=== PATIENT | female | born 1955 | race Caucasian/White ===

== ENCOUNTER 2021-04-16 15:16 | Inpatient (IN) | payer MEDICARE ==
[~2021-04-16] VITALS: Ht 157.5 cm; Wt 53.8 kg
--- NOTE | 2021-04-16 15:22 | PHYS DOC ---
Past Medical History Past Medical History History of lupus DVT cervical cancer, trigeminal arthralgia and asthma. Past Surgical History She reports history of a major surgery where they rerouted her bile duct. Alcohol Use: Occasionally Drug Use: None General Adult EDM: Chief Complaint: Left hip pain HPI: HPI: 65-year-old female who presents emergency department today with left hip pain. She was sitting and she went to stand up and her left leg went numb and so she fell and injured her hip. She denies hitting her head or loss of consciousness. The pain is sharp shooting severe in the pelvis nonradiating without alleviating factors. The sensation in her leg has improved since the injury and transports. The numbness predated her injury. It caused her injury Review of systems negative for chest pain shortness of breath back pain or abdominal pain. All other review of systems negative. Heart Score: C/O Chest Pain: No Risk Factors: Risk Factors: DM, Current or recent (<one month) smoker, HTN, HLP, family history of CAD, obesity. Risk Scores: Score 0 - 3: 2.5% MACE over next 6 weeks - Discharge Home Score 4 - 6: 20.3% MACE over next 6 weeks - Admit for Clinical Observation Score 7 - 10: 72.7% MACE over next 6 weeks - Early Invasive Strategies Physical Exam: PE: General Appearance alert, cooperative, no distress, responsive Head Normocephalic, without obvious abnormality, atraumatic no abrasions lacerations or ecchymosis to the head and neck. Eyes conjunctivae/corneas clear. PERRL, EOM's intact. Nose Nares normal. Septum midline. Mucosa normal. No drainage or sinus tenderness. Throat no blood or lacerations, normal alignment Neck supple, symmetrical, trachea midline, cervical collar in place Back/Spine symmetric, normal curvature. ROM normal, no abrasions, no tenderness to palpation, no step-offs Lungs clear to auscultation bilaterally Chest Wall normal ribcage without tenderness to palpation, crepitus or emphysema Heart REG rate and regular rhythm, S1, S2 normal, no murmur, click, rub or gallop Abdomen soft, non-tender. Bowel sounds normal. No masses, no organomegaly Pelvis is stable Extremities patient's lower extremities are atraumatic nontender to palpation with palpable pulse and 2-second cap refill. Normal motor and sensory function of the feet bilaterally. Upper extremities are nontender with normal range of motion of the joints. Neurovascular intact with palpable pulse and 2-second cap refill Pulses 2+ and symmetric Skin Skin color, texture, turgor normal. No rashes or lesions Neurologic Grossly normal Eye opening: (4) spontaneous Best motor response: (6) obeys verbal command Best verbal response: (5) oriented and converses Total Tonia (E + M + V) = 15 EKG: EKG: [] Radiology/Procedures: Radiology/Procedures: [] Course & Med Decision Making: Course & Med Decision Making Pertinent Labs and Imaging studies reviewed. (See chart for details) [] 65-year-old female who presented after a fall with pubic rami fractures and a sacral fracture. IV established. Blood work ordered. Patient was afebrile with a normal heart rate on arrival. Blood pressure initially 146/76. Labs obtained which showed a hemoglobin of 11.7. White blood cell 8.1. Chemistry panel unremarkable. Head and neck CT negative. X-ray shows pubic rami fracture and a left sacral fracture. CT of the pelvis shows a nondisplaced left sacral wing fracture with superior and inferior pubic rami fractures. Neurovascular intact. I spoke with Dr. Oscar. Will admit the patient to Dr. Allen. I also spoke with Dr. Schreiber. We will consult trauma surgery. Basic bridge orders placed. Cortney Disclaimer: Cortney Disclaimer: This electronic medical record was generated, in whole or in part, using a voice recognition dictation system. Departure Departure Impression: Primary Impression: Pubic ramus fracture Additional Impression: Sacral fracture, closed Disposition: ADMITTED INPATIENT Admitting Physician: [facility] Condition: STABLE LAVELL CHAVARRIA MD Apr 16, 2021 15:22
--- NOTE | 2021-04-16 15:54 | RAD ---
Left hip 2 views with one view pelvis. HISTORY: Left hip pain Single view was taken of the pelvis. There are left superior and inferior pubic rami fractures. There is irregularity at the sacrum suggesting a nondisplaced sacral fracture as well. A right hip fractur e is not identified. AP and lateral views the left hip again demonstrate the pubic rami fractures. There is no acute proxi mal femur fracture. IMPRESSION: 1. Right superior and inferior pubic rami fracture. 2. Fracture left sacrum. Electronically signed by: Leobardo Ochoa MD (04/16/2021 3:51 PM) [facility]
[2021-04-16] MEDS ORDERED: IV NORMAL SALINE 1000ML BAG 1,000 ML IV ONE (16:15)
[2021-04-16] MEDS ORDERED: ONDANSETRON PF 4 MG/2 ML VIAL. IV PRN (16:15)
[2021-04-16] MEDS: HYDROmorphone 2 MG/ML VIAL IV PRN ×3 (16:18→21:19)
--- NOTE | 2021-04-16 18:06 | RAD ---
Exam: CT head and cervical spine without contrast INDICATION: Head injury TECHNIQUE: Sequential axial images through the head and cervical spine were obtained without the admi nistration of IV contrast. Exposure: One or more of the following in the visualized dose reduction techniques were utilized for this examination: 1. Automated exposure control 2. Adjustment of the MA and/or KV according to patient size 3. Use of iterative of reconstructive technique Comparisons: None FINDINGS: Head: No focal parenchymal lesion or hemorrhage is identified. There is no midline shift or sulcal effaceme nt. No acute vascular territory infarction is identified. Henderson-white distinction is preserved. The ventricular system is within normal limits without compression hydrocephalus. The basal cisterns are well maintained. The visualized portions of the paranasal sinuses and mastoid air cells are well-pneumatized. No acute fractures. Cervical spine: Reversal of normal cervical lordosis which may be positional. Vertebral body heights are well-maintai guerda. Fracture to the cervical spine is not identified. Multilevel spondylotic change in cervical spine with degenerative disc disease greatest at C4-C5, C5- C6 and C6-C7. Mild bilateral facet arthropathy is also noted in the cervical spine. Visualized paraspinal soft tissues are unremarkable. IMPRESSION: 1. No acute intracranial abnormality. 2. Negative CT C-spine for acute traumatic injury. Electronically signed by: Dee Pate MD (04/16/2021 6:04 PM) [facility]
[2021-04-16 18:16] LABS: BASO % 0 % (0-3); EOS # 0.2 x10^3/uL (0.0-0.7); EOS % 3 % (0-3); HEMATOCRIT 35.2 % (36.0-47.0); HEMOGLOBIN 11.7 g/dL (12.0-15.5); LYMPH # 0.9 x10^3/uL (1.0-4.8); LYMPH % 11 % (24-48); MEAN CORPUSCULAR HEMOGLOBIN 32 pg (25-35); MEAN CORPUSCULAR HGB CONC 33 g/dL (31-37); MEAN CORPUSCULAR VOLUME 95 fL (79-100); MONO # 0.5 x10^3/uL (0.0-1.1); MONO % 6 % (0-9); NEUT # 6.4 x10^3/uL (1.8-7.7); NEUT % 80 % (31-73); PLATELET COUNT 268 x10^3/uL (140-400); RED BLOOD COUNT 3.69 x10^6/uL (3.50-5.40); RED CELL DISTRIBUTION WIDTH 12.8 % (11.5-14.5); WHITE BLOOD COUNT 8.1 x10^3/uL (4.0-11.0)
--- NOTE | 2021-04-16 18:23 | RAD ---
CT PELVIS WO History: Pelvis fractures. Comparison: Hip radiographs 04/16/2021 Technique: Noncontrast CT through the pelvis. Findings: There is a nondisplaced transverse fracture through the left sacral wing (axial series 3 image 16). A dditionally, there are minimally displaced left superior and inferior pubic rami fractures. No proximal femur fracture. Mild degenerative changes of bilateral hips. Atherosclerotic vascular william cifications in the aorta and iliac arteries. The bladder is well distended. No pelvic masses are iden tified. Impression: 1. Nondisplaced transverse fracture through the left sacral wing. 2. Minimally displaced left superior and inferior pubic rami fractures. ------ Exposure: One or more of the following individualized dose reduction techniques were utilized for thi s examination: 1. Automated exposure control 2. Adjustment of the mA and/or kV according to patient size 3. Use of iterative reconstruction technique. Electronically signed by: Cam Callaway MD (04/16/2021 6:21 PM) [facility]
[2021-04-16 18:34] LABS: CALCIUM 8.1 mg/dL (8.5-10.1); CREATININE 0.6 mg/dL (0.6-1.0); POTASSIUM 3.9 mmol/L (3.5-5.1)
[2021-04-16 18:39] LABS: ALBUMIN 2.6 g/dL (3.4-5.0); TOTAL BILIRUBIN 0.2 mg/dL (0.2-1.0); TOTAL PROTEIN 5.2 g/dL (6.4-8.2)
--- NOTE | 2021-04-16 19:39 | PDOC1 ---
History and Physical Date of Admission Date of Admission DATE: 04/16/21 TIME: 19:21 Identification/Chief Complaint Chief Complaint Fall Source Source: Caregiver, Chart review, Patient History of Present Illness History of Present Illness Patient is a 65-year-old female with past medical history of lupus, trigeminal neuralgia, hypothyroidism, cervical cancer, osteoporosis, history of blood clots, anxiety/depression, who presents to the ED with complaints of left hip pain after a fall. States she was sitting and when she went to stand she collapsed on the front porch. States she landed on her bottom and did hit her head, but denies LOC. She reports pain 10/10 at that time, with some associated numbness. States that this is the third time this week that she has had this type of numbness and weakness in her lower extremities, which is new and concerning for her. She denies any associated chest pain, nausea, or shortness of breath. Labs on admission showed hemoglobin 11.7, hematocrit 35.2, BUN 13, creatinine 0.6, albumin 2.6, with BUN/creatinine ratio 22. CT o abdomen/pelvis shows a nondisplaced left sacral wing fracture with superior and inferior pubic rami fractures. Will admit patient for further medical management. Past Medical History Past Medical History Lupus, trigeminal neuralgia, blood clots, cervical CVA, hypothyroidism, an xiety/depression, osteoporosis Past Surgical History Past Surgical History Cholecystectomy, partial hysterectomy Family History Family History Lupus Social History Smoke: No ALCOHOL: rare Drugs: None Current Problem List Problem List Problems Medical Problems: (1) Pubic ramus fracture Status: Acute (2) Sacral fracture, closed Status: Acute Current Medications Current Medications Current Medications Hydromorphone HCl (Dilaudid) 0.5 mg PRN Q30MIN PRN IV SEVERE PAIN 7-10 Last administered on 04/16/21at 18:15; Start 04/16/21 at 16:00 Sodium Chloride 1,000 ml @ 1,000 mls/hr 1X ONCE IV Last administered on 04/16/21at 16:19; Start 04/16/21 at 16:15; Stop 04/16/21 at 17:14; Status DC Ondansetron HCl (Zofran) 4 mg 1X PRN IV NAUSEAS Last administered on 04/16/21at 16:17; Start 04/16/21 at 16:15; Stop 04/16/21 at 16:19; Status DC Morphine Sulfate (Morphine Sulfate) 2 mg PRN Q2HR PRN IV PAIN; Start 04/16/21 at 19:15 Allergies Allergies: Coded Allergies: amoxicillin (Verified Allergy, Intermediate, rash, 04/16/21) ROS Review of System GENERAL: No history of weight change, weakness or fevers. SKIN: No bruising, hair changes or rashes. EYES: No blurred, double or loss of vision. NOSE AND THROAT: No history of nosebleeds, hoarseness or sore throat. HEART: Denies chest pain, denies palpitations. LUNGS: Denies cough, hemoptysis, wheezing or shortness of breath. GASTROINTESTINAL: Denies nausea, vomiting, abdominal pain. GENITOURINARY: Denies dysuria, frequency, urgency, hematuria. NEUROLOGIC: Denies history of numbness, tingling, tremor or weakness. PSYCHIATRIC: Denies anxiety, denies depression. ENDOCRINE: No history of heat or cold intolerance, polyuria or polydipsia. EXTREMITIES: Bilateral lower pelvic pain. Denies muscle weakness, joint pain, pain on walking or stiffness. Physical Exam Physical Exam General: Alert, Oriented X3, Cooperative, moderate acute distress HEENT: PERRLA, EOMI Lungs: Clear to auscultation, Normal air movement Heart: RRR, no murmurs Cardiovascular: S1, S2 Abdomen: Normal bowel sounds, Soft, No tenderness Extremities: No clubbing, No cyanosis Skin: No rashes, No significant lesion Neuro: Normal speech, Normal tone, Sensation intact Psych/Mental Status: Mental status NL, Mood NL Vitals Vitals Vital Signs Date Time Temp Pulse Resp B/P (MAP) Pulse Ox O2 Delivery O2 Flow Rate FiO2 04/16/21 17:10 78 137/65 (89) 95 Room Air 04/16/21 16:18 16 04/16/21 15:19 99.4 99.4 Labs Labs Laboratory Tests Test 04/16/21 18:03 White Blood Count 8.1 x10^3/uL (4.0-11.0) Red Blood Count 3.69 x10^6/uL (3.50-5.40) Hemoglobin 11.7 g/dL (12.0-15.5) Hematocrit 35.2 % (36.0-47.0) Mean Corpuscular Volume 95 fL (79-100) Mean Corpuscular Hemoglobin 32 pg (25-35) Mean Corpuscular Hemoglobin Concent 33 g/dL (31-37) Red Cell Distribution Width 12.8 % (11.5-14.5) Platelet Count 268 x10^3/uL (140-400) Neutrophils (%) (Auto) 80 % (31-73) Lymphocytes (%) (Auto) 11 % (24-48) Monocytes (%) (Auto) 6 % (0-9) Eosinophils (%) (Auto) 3 % (0-3) Basophils (%) (Auto) 0 % (0-3) Neutrophils # (Auto) 6.4 x10^3/uL (1.8-7.7) Lymphocytes # (Auto) 0.9 x10^3/uL (1.0-4.8) Monocytes # (Auto) 0.5 x10^3/uL (0.0-1.1) Eosinophils # (Auto) 0.2 x10^3/uL (0.0-0.7) Basophils # (Auto) 0.0 x10^3/uL (0.0-0.2) Sodium Level 140 mmol/L (136-145) Potassium Level 3.9 mmol/L (3.5-5.1) Chloride Level 106 mmol/L (98-107) Carbon Dioxide Level 28 mmol/L (21-32) Anion Gap 6 (6-14) Blood Urea Nitrogen 13 mg/dL (7-20) Creatinine 0.6 mg/dL (0.6-1.0) Estimated GFR (Cockcroft-Gault) 100.0 BUN/Creatinine Ratio 22 (6-20) Glucose Level 88 mg/dL (70-99) Calcium Level 8.1 mg/dL (8.5-10.1) Total Bilirubin 0.2 mg/dL (0.2-1.0) Aspartate Amino Transf (AST/SGOT) 40 U/L (15-37) Alanine Aminotransferase (ALT/SGPT) 46 U/L (14-59) Alkaline Phosphatase 121 U/L (46-116) Total Protein 5.2 g/dL (6.4-8.2) Albumin 2.6 g/dL (3.4-5.0) Albumin/Globulin Ratio 1.0 (1.0-1.7) Laboratory Tests Test 04/16/21 18:03 White Blood Count 8.1 x10^3/uL (4.0-11.0) Red Blood Count 3.69 x10^6/uL (3.50-5.40) Hemoglobin 11.7 g/dL (12.0-15.5) Hematocrit 35.2 % (36.0-47.0) Mean Corpuscular Volume 95 fL (79-100) Mean Corpuscular Hemoglobin 32 pg (25-35) Mean Corpuscular Hemoglobin Concent 33 g/dL (31-37) Red Cell Distribution Width 12.8 % (11.5-14.5) Platelet Count 268 x10^3/uL (140-400) Neutrophils (%) (Auto) 80 % (31-73) Lymphocytes (%) (Auto) 11 % (24-48) Monocytes (%) (Auto) 6 % (0-9) Eosinophils (%) (Auto) 3 % (0-3) Basophils (%) (Auto) 0 % (0-3) Neutrophils # (Auto) 6.4 x10^3/uL (1.8-7.7) Lymphocytes # (Auto) 0.9 x10^3/uL (1.0-4.8) Monocytes # (Auto) 0.5 x10^3/uL (0.0-1.1) Eosinophils # (Auto) 0.2 x10^3/uL (0.0-0.7) Basophils # (Auto) 0.0 x10^3/uL (0.0-0.2) Sodium Level 140 mmol/L (136-145) Potassium Level 3.9 mmol/L (3.5-5.1) Chloride Level 106 mmol/L (98-107) Carbon Dioxide Level 28 mmol/L (21-32) Anion Gap 6 (6-14) Blood Urea Nitrogen 13 mg/dL (7-20) Creatinine 0.6 mg/dL (0.6-1.0) Estimated GFR (Cockcroft-Gault) 100.0 BUN/Creatinine Ratio 22 (6-20) Glucose Level 88 mg/dL (70-99) Calcium Level 8.1 mg/dL (8.5-10.1) Total Bilirubin 0.2 mg/dL (0.2-1.0) Aspartate Amino Transf (AST/SGOT) 40 U/L (15-37) Alanine Aminotransferase (ALT/SGPT) 46 U/L (14-59) Alkaline Phosphatase 121 U/L (46-116) Total Protein 5.2 g/dL (6.4-8.2) Albumin 2.6 g/dL (3.4-5.0) Albumin/Globulin Ratio 1.0 (1.0-1.7) Images Images PATIENT: MARGARET WALTERS ACCOUNT: [id number] : 1955 LOCATION: ER AGE: 65 SEX: F EXAM STATUS: REG ER ORD. PHYSICIAN: LAVELL CHAVARRIA MD REASON: PELVIC FXs PROCEDURE: CT PELVIS WO CONTRAST CT PELVIS WO History: Pelvis fractures. Comparison: Hip radiographs 04/16/2021 Technique: Noncontrast CT through the pelvis. Findings: There is a nondisplaced transverse fracture through the left sacral wing (axial series 3 image 16). Additionally, there are minimally displaced left superior and inferior pubic rami fractures. No proximal femur fracture. Mild degenerative changes of bilateral hips. Atherosclerotic vascular calcifications in the aorta and iliac arteries. The bladder is well distended. No pelvic masses are identified. Impression: 1. Nondisplaced transverse fracture through the left sacral wing. 2. Minimally displaced left superior and inferior pubic rami fractures. PATIENT: MARGARET WALTERS ACCOUNT: [id number] : 1955 LOCATION: ER AGE: 65 SEX: F EXAM STATUS: REG ER ORD. PHYSICIAN: LAVELL CHAVARRIA MD REASON: left hip pain PROCEDURE: HIP LEFT 2V WITH PELVIS Left hip 2 views with one view pelvis. HISTORY: Left hip pain Single view was taken of the pelvis. There are left superior and inferior pubic rami fractures. There is irregularity at the sacrum suggesting a nondisplaced sacral fracture as well. A right hip fracture is not identified. AP and lateral views the left hip again demonstrate the pubic rami fractures. There is no acute proximal femur fracture. IMPRESSION: 1. Right superior and inferior pubic rami fracture. 2. Fracture left sacrum. PATIENT: MARGARET WALTERS ACCOUNT: [id number] : 1955 LOCATION: ER AGE: 65 SEX: F EXAM STATUS: REG ER ORD. PHYSICIAN: LAVELL CHAVARRIA MD REASON: HEAD INJURY PROCEDURE: CT HEAD AND CERVICAL SPINE WO Exam: CT head and cervical spine without contrast INDICATION: Head injury TECHNIQUE: Sequential axial images through the head and cervical spine were obtained without the administration of IV contrast. Exposure: One or more of the following in the visualized dose reduction techniques were utilized for this examination: 1. Automated exposure control 2. Adjustment of the MA and/or KV according to patient size 3. Use of iterative of reconstructive technique Comparisons: None FINDINGS: Head: No focal parenchymal lesion or hemorrhage is identified. There is no midline shift or sulcal effacement. No acute vascular territory infarction is identified. Henderson-white distinction is preserved. The ventricular system is within normal limits without compression hydrocephalus. The basal cisterns are well maintained. The visualized portions of the paranasal sinuses and mastoid air cells are well- pneumatized. No acute fractures. Cervical spine: Reversal of normal cervical lordosis which may be positional. Vertebral body heights are well-maintained. Fracture to the cervical spine is not identified. Multilevel spondylotic change in cervical spine with degenerative disc disease g reatest at C4-C5, C5-C6 and C6-C7. Mild bilateral facet arthropathy is also noted in the cervical spine. Visualized paraspinal soft tissues are unremarkable. IMPRESSION: 1. No acute intracranial abnormality. 2. Negative CT C-spine for acute traumatic injury. VTE Prophylaxis Ordered VTE Prophylaxis Devices: No VTE Pharmacological Prophylaxi: Yes Assessment/Plan Assessment/Plan Minimally displaced left superior and inferior pubic rami fracture Nondisplaced transverse fracture of the left sacral wing Dehydration Normocytic anemia Lupus History of blood clots Trigeminal neuralgia Hypothyroidism Severe protein malnutrition Plan: Place consultation orthopedic surgery Provide IV fluids and pain management Resume home medications PT/OT FEN - Cardiac diet; NPO after midnight PPX - Heparin FULL CODE Dispo - inpatient for above Advance Care Planning: Total time spent [id number] with patient 16 minutes in discussion with goals of care, comfort care, end-of-life care, pain management, code status; patient names her (Derrek Walters) as surrogate decision- maker. Justifications for Admission Other Justification NORA VERONICA MD Apr 16, 2021 19:39
[2021-04-16] MEDS ORDERED: HYDROcodone/APAP 5/325MG 1 TAB TABLET PO PRN (19:45)
[2021-04-16] MEDS ORDERED: CALCIUM CARBONATE 500 MG TAB.CHEW PO PRN (19:45)
[2021-04-16] MEDS ORDERED: MAG HYDROX/ALUMINUM HYD/SIMETH 30 ML ORAL.SUSP PO PRN (19:45)
[2021-04-16] MEDS ORDERED: ONDANSETRON PF 4 MG/2 ML VIAL. IVP PRN (19:45)
[2021-04-16] MEDS ORDERED: ACETAMINOPHEN 325 MG TABLET. PO PRN (19:45)
[2021-04-16] MEDS ORDERED: ZOLPIDEM 5 MG TABLET. PO PRN (19:45)
[2021-04-16] MEDS ORDERED: MAGNESIUM HYDROXIDE 2,400 MG/30 ML ORAL.SUSP. PO PRN (19:45)
[2021-04-16] MEDS ORDERED: MORPHINE SULFATE 10 MG/ML VIAL. IV PRN (19:45)
[2021-04-16 22:30] VITALS: BP 132/77
[2021-04-16] MEDS: MORPHINE SULFATE 2 MG/ML INJ. IV PRN (22:49)
--- NOTE | 2021-04-16 23:00 | NUR ---
Pt. arrived on unit at 2230 by bed from ED. Pt. is rating pain 10/10 and is crying after transferring to bed. Pt. is A&Ox4, RA, VSS. Call light is within reach with bed in lowest position. Will continue to monitor.
[2021-04-16] MEDS: oxyCODONE/APAP 5/325 1 TAB TABLET PO PRN (23:59)
[2021-04-17] MEDS: HEPARIN for SUB-Q USE 5,000 UNIT/ML VIAL. SQ SCH ×4 (00:03→21:20)
[2021-04-17] MEDS ORDERED: DULO60CA6 PO (02:47)
[2021-04-17] MEDS ORDERED: LEVO150T5 PO (02:47)
[2021-04-17] MEDS ORDERED: LOPE-101 PO (02:47)
[2021-04-17] MEDS ORDERED: HYDR-2769 PO (02:47)
[2021-04-17] MEDS ORDERED: ASPI-630 PO (02:47)
[2021-04-17] MEDS ORDERED: CHOL10004 PO (02:47)
[2021-04-17] MEDS ORDERED: OMEP20CA16 PO (02:47)
[2021-04-17] MEDS ORDERED: TRIA15CR3 TP (02:47)
[2021-04-17] MEDS ORDERED: VENTOLIN HFA18 GM INH (02:47)
[2021-04-17] MEDS ORDERED: CARB100C4 PO (02:47)
[2021-04-17] MEDS ORDERED: ALBU2.5V8 IH (02:47)
[2021-04-17] MEDS ORDERED: MELO15TA23 PO (02:47)
[2021-04-17] MEDS ORDERED: GABA600T7 PO (02:47)
[2021-04-17 03:31] VITALS: BP 123/63
[2021-04-17] MEDS: MORPHINE SULFATE 2 MG/ML INJ. IV PRN ×2 (06:04→09:17)
--- NOTE | 2021-04-17 06:05 | NUR ---
Pt. is telling RN this morning that she has been having numbness in her left leg for about a week and a half like her leg just "gives out" and becomes numb. That is the reason why she fell this time.
[2021-04-17 07:00] VITALS: BP 127/61
[2021-04-17 07:47] LABS: CREATININE ISTAT 0.6 mg/dL (0.5-1.4); HEMOGLOBIN ISTAT 11.6 g/dL (12-15); ION CA ISTAT 1.13 mmol/L (1.13-1.32); POTASSIUM ISTAT 3.9 mmol/L (3.5-5.0)
--- NOTE | 2021-04-17 09:27 | PDOC ---
[employer] PROGRESS NOTE Date of Service DOS: DATE: 04/17/21 TIME: 09:23 Chief Complaint Chief Complaint A/P: Minimally displaced left superior and inferior pubic rami fracture Nondisplaced transverse fracture of the left sacral wing Dehydration Normocytic anemia Lupus History of blood clots Trigeminal neuralgia Hypothyroidism Severe protein malnutrition Plan: Place consultation orthopedic surgery Provide IV fluids and pain management Resume home medications PT/OT FEN - Cardiac diet; NPO after midnight PPX - Heparin FULL CODE Dispo - inpatient for above Advance Care Planning: Total time spent [id number] with patient 16 minutes in discussion with goals of care, comfort care, end-of-life care, pain management, code status; patient names her (Derrek Callaway) as surrogate decision- maker. History of Present Illness History of Present Illness Ms Callaway is a 65-year-old female with past medical history of lupus, trigeminal neuralgia, hypothyroidism, cervical cancer, osteoporosis, history of blood clots, anxiety/depression, who presents to the ED with complaints of left hip pain after a fall. States she was sitting and when she went to stand she collapsed on the front porch. States she landed on her bottom and did hit her head, but denies LOC. She reports pain 10/10 at that time, with some associated numbness. States that this is the third time this week that she has had this type of numbness and weakness in her lower extremities, which is new and concerning for her. She denies any associated chest pain, nausea, or shortness of breath. Labs on admission showed hemoglobin 11.7, hematocrit 35.2, BUN 13, creatinine 0.6, albumin 2.6, with BUN/creatinine ratio 22. CT o abdomen/pelvis shows a nondisplaced left sacral wing fracture with superior and inferior pubic rami fractures. Admitted patient for further medical management. She is having pain and headache with morphine. Notes that Dilaudid helped her pain. She is asking for diet. No fever or shortness of breath or chest pain. She does note history of 2 prior pulmonary emboli but notes that she had a negative prothrombotic work-up at the [facility] previously and is not on long- term anticoagulation. Vitals/I&O Vitals/I&O: Vital Signs Date Time Temp Pulse Resp B/P (MAP) Pulse Ox O2 Delivery O2 Flow Rate FiO2 04/17/21 09:17 96 Room Air 04/17/21 07:00 98.1 67 18 127/61 (83) 98.1 I & O 04/16/21 04/16/21 04/17/21 15:00 23:00 07:00 Intake Total 360 ml Balance 360 ml Physical Exam General: Alert, Oriented X3, Cooperative Heart: Regular rate, Normal S1, Normal S2 Lungs: Clear Abdomen: Normal bowel sounds, Soft Extremities: No clubbing, No cyanosis Skin: No rashes, No breakdown Labs Labs: Laboratory Tests Test 04/16/21 18:03 04/16/21 18:12 04/17/21 00:01 White Blood Count 8.1 x10^3/uL (4.0-11.0) Red Blood Count 3.69 x10^6/uL (3.50-5.40) Hemoglobin 11.7 g/dL (12.0-15.5) Hematocrit 35.2 % (36.0-47.0) Mean Corpuscular Volume 95 fL (79-100) Mean Corpuscular Hemoglobin 32 pg (25-35) Mean Corpuscular Hemoglobin Concent 33 g/dL (31-37) Red Cell Distribution Width 12.8 % (11.5-14.5) Platelet Count 268 x10^3/uL (140-400) Neutrophils (%) (Auto) 80 % (31-73) Lymphocytes (%) (Auto) 11 % (24-48) Monocytes (%) (Auto) 6 % (0-9) Eosinophils (%) (Auto) 3 % (0-3) Basophils (%) (Auto) 0 % (0-3) Neutrophils # (Auto) 6.4 x10^3/uL (1.8-7.7) Lymphocytes # (Auto) 0.9 x10^3/uL (1.0-4.8) Monocytes # (Auto) 0.5 x10^3/uL (0.0-1.1) Eosinophils # (Auto) 0.2 x10^3/uL (0.0-0.7) Basophils # (Auto) 0.0 x10^3/uL (0.0-0.2) Sodium Level 140 mmol/L (136-145) Potassium Level 3.9 mmol/L (3.5-5.1) Chloride Level 106 mmol/L (98-107) Carbon Dioxide Level 28 mmol/L (21-32) Anion Gap 6 (6-14) 19 mmol/L (6-14) Blood Urea Nitrogen 13 mg/dL (7-20) Creatinine 0.6 mg/dL (0.6-1.0) Estimated GFR (Cockcroft-Gault) 100.0 BUN/Creatinine Ratio 22 (6-20) Glucose Level 88 mg/dL (70-99) 89 mg/dL (70-99) Calcium Level 8.1 mg/dL (8.5-10.1) Total Bilirubin 0.2 mg/dL (0.2-1.0) Aspartate Amino Transf (AST/SGOT) 40 U/L (15-37) Alanine Aminotransferase (ALT/SGPT) 46 U/L (14-59) Alkaline Phosphatase 121 U/L (46-116) Total Protein 5.2 g/dL (6.4-8.2) Albumin 2.6 g/dL (3.4-5.0) Albumin/Globulin Ratio 1.0 (1.0-1.7) Bedside Hemoglobin 11.6 g/dL (12-15) Bedside Hematocrit 34 % (36-40) Bedside Sodium 142 mmol/L (135-145) Bedside Potassium 3.9 mmol/L (3.5-5.0) Bedside Chloride 103 mmol/L (98-110) Bedside Total CO2 24 mmol/L (23-32) Bedside Blood Urea Nitrogen 13 mg/dL (8-26) Bedside Creatinine 0.6 mg/dL (0.5-1.4) Bedside Ionized Calcium (Daryl) 1.13 mmol/L (1.13-1.32) Vitamin B12 Level 467 pg/mL (247-911) Assessment and Plan Assessmemt and Plan Problems Medical Problems: (1) Pubic ramus fracture Status: Acute (2) Sacral fracture, closed Status: Acute Comment Review of Relevant I have reviewed the following items yuridia (where applicable) has been applied. Medications: Current Medications Medications (Trade) Dose Ordered Sig/Verónica Route PRN Reason Start Time Stop Time Status Last Admin Dose Admin Hydromorphone HCl (Dilaudid) 0.5 mg PRN Q30MIN PRN IV SEVERE PAIN 7-10 04/16/21 16:00 7/22/21 21:19 DC 04/16/21 21:19 Sodium Chloride 1,000 ml @ 1,000 mls/hr 1X ONCE IV 04/16/21 16:15 04/16/21 17:14 DC 04/16/21 16:19 Ondansetron HCl (Zofran) 4 mg 1X PRN IV NAUSEAS 04/16/21 16:15 04/16/21 16:19 DC 04/16/21 16:17 Morphine Sulfate (Morphine Sulfate) 2 mg PRN Q2HR PRN IV PAIN 04/16/21 19:15 04/17/21 09:22 DC 04/17/21 09:17 Morphine Sulfate (Morphine Sulfate) 4 mg PRN Q3HRS PRN IV PAIN 04/16/21 19:45 04/17/21 00:52 Oxycodone/ Acetaminophen (Percocet 5/325) 2 tab PRN Q4HRS PRN PO MODERATE PAIN, SEVERE PAIN 04/16/21 19:45 04/16/21 23:59 Heparin Sodium (Porcine) (Heparin Sodium) 5,000 unit Q8HRS SQ 04/16/21 22:00 04/17/21 00:03 Justifications for Admission Other Justification ADRIANA VALDEZ MD Apr 17, 2021 09:27
[2021-04-17] MEDS ORDERED: ALBUTEROL SULFATE 2.5 MG/3 ML NEBU. INH PRN (09:30)
[2021-04-17] MEDS: CHOLECALCIFEROL (VITAMIN D3) 1,000 UNIT TABLET PO SCH (10:00)
[2021-04-17] MEDS: ASPIRIN CHEWABLE 81 MG TABLET. PO SCH (10:00)
[2021-04-17] MEDS: GABAPENTIN 300 MG CAPSULE. PO SCH ×2 (10:00→21:17)
[2021-04-17] MEDS: DULoxetine HCL 30 MG CAPSULE.DR PO SCH (10:00)
[2021-04-17] MEDS: TRIAMCINOLONE ACETONIDE 0.1% TOPICAL CREAM 15GM TUBE. TP SCH (10:00)
--- NOTE | 2021-04-17 10:21 | NUR ---
SW following. Discussed with RN, pt from home with , room air, NPO. Ortho consulted. RN advised no SW needs at this time. SW will continue to follow.
[2021-04-17] MEDS: LEVOTHYROXINE 150 MCG TABLET PO SCH (10:30)
[2021-04-17 11:00] VITALS: BP 129/68
[2021-04-17] MEDS ORDERED: MORPHINE SULFATE 4 MG/ML INJ. IV PRN (11:15)
[2021-04-17] MEDS: PANTOPRAZOLE 40 MG TABLET.DR. PO SCH (11:30)
[2021-04-17] MEDS ORDERED: HYDROmorphone 2 MG/ML VIAL IVP PRN (13:00)
[2021-04-17] MEDS ORDERED: POTASSIUM CL 20MEQ D5-0.45NACL 1,000 ML IV ONE (14:00)
[2021-04-17 15:00] VITALS: BP 135/81
[2021-04-17] MEDS ORDERED: ONDANSETRON PF 4 MG/2 ML VIAL. IVP PRN (16:15)
[2021-04-17 19:41] VITALS: BP 142/64
[2021-04-17] MEDS: oxyCODONE/APAP 5/325 1 TAB TABLET PO PRN (21:17)
[2021-04-17 23:07] VITALS: BP 139/70
[2021-04-18 03:28] VITALS: BP 123/62
[2021-04-18] MEDS: oxyCODONE/APAP 5/325 1 TAB TABLET PO PRN ×3 (05:51→18:13)
[2021-04-18] MEDS: LEVOTHYROXINE 150 MCG TABLET PO SCH (05:51)
[2021-04-18] MEDS: PANTOPRAZOLE 40 MG TABLET.DR. PO SCH (05:52)
[2021-04-18] MEDS: HEPARIN for SUB-Q USE 5,000 UNIT/ML VIAL. SQ SCH ×3 (05:56→21:11)
[2021-04-18 07:00] VITALS: BP 135/63
--- NOTE | 2021-04-18 07:38 | PDOC ---
[employer] [facility] PROGRESS NOTE Date of Service DOS: DATE: 04/18/21 TIME: 07:38 Chief Complaint Chief Complaint A/P: Minimally displaced left superior and inferior pubic rami fracture Nondisplaced transverse fracture of the left sacral wing Dehydration Normocytic anemia Lupus History of blood clots Trigeminal neuralgia Hypothyroidism Severe protein malnutrition Plan: Place consultation orthopedic surgery Provide IV fluids and pain management Resume home medications PT/OT FEN - Cardiac diet; NPO after midnight PPX - Heparin FULL CODE Dispo - inpatient for above Advance Care Planning: Total time spent [id number] with patient 16 minutes in discussion with goals of care, comfort care, end-of-life care, pain management, code status; patient names her (Derrek Callaway) as surrogate decision- maker. History of Present Illness History of Present Illness Ms Callaway is a 65-year-old female with past medical history of lupus, trigeminal neuralgia, hypothyroidism, cervical cancer, osteoporosis, history of blood clots, anxiety/depression, who presents to the ED with complaints of left hip pain after a fall. States she was sitting and when she went to stand she collapsed on the front porch. States she landed on her bottom and did hit her head, but denies LOC. She reports pain 10/10 at that time, with some associated numbness. States that this is the third time this week that she has had this type of numbness and weakness in her lower extremities, which is new and concerning for her. She denies any associated chest pain, nausea, or shortness of breath. Labs on admission showed hemoglobin 11.7, hematocrit 35.2, BUN 13, creatinine 0.6, albumin 2.6, with BUN/creatinine ratio 22. CT o abdomen/pelvis shows a nondisplaced left sacral wing fracture with superior and inferior pubic rami fractures. Admitted patient for further medical management. 04/17: She is having pain and headache with morphine. Notes that Dilaudid helped her pain. She is asking for diet. No fever or shortness of breath or chest pain. She does note history of 2 prior pulmonary emboli but notes that she had a negative prothrombotic work-up at the [facility] previously and is not on long-term anticoagulation. Willett placed for comfort. Has significant nausea with Dilaudid and morphine. Tolerating p.o. oxycodone well. Advised Toradol for pain prior to therapy today. Her goal is to go home. No chest pain or shortness of breath. No bowel movement this yet. Vitals/I&O Vitals/I&O: Vital Signs Date Time Temp Pulse Resp B/P (MAP) Pulse Ox O2 Delivery O2 Flow Rate FiO2 04/18/21 05:51 Room Air 04/18/21 03:28 98.5 60 18 123/62 (82) 96 98.5 I & O 04/17/21 04/17/21 04/18/21 15:00 23:00 07:00 Intake Total 230 ml Output Total 2850 ml Balance -2620 ml Physical Exam General: Alert, Oriented X3, Cooperative Heart: Regular rate, Normal S1, Normal S2 Lungs: Clear Abdomen: Normal bowel sounds, Soft Extremities: No clubbing, No cyanosis Skin: No rashes, No breakdown Assessment and Plan Assessmemt and Plan Problems Medical Problems: (1) Pubic ramus fracture Status: Acute (2) Sacral fracture, closed Status: Acute Comment Review of Relevant I have reviewed the following items yuridia (where applicable) has been applied. Medications: Current Medications Medications (Trade) Dose Ordered Sig/Verónica Route PRN Reason Start Time Stop Time Status Last Admin Dose Admin Levothyroxine Sodium (Synthroid) 150 mcg DAILY06 PO 04/17/21 10:30 04/18/21 05:51 Gabapentin (Neurontin) 300 mg BID PO 04/17/21 10:00 04/17/21 21:17 Pantoprazole Sodium (Protonix) 40 mg DAILYAC PO 04/17/21 11:30 04/18/21 05:52 Hydromorphone HCl (Dilaudid) 0.5 mg PRN Q3HRS PRN IVP PAIN 04/17/21 13:00 04/17/21 13:23 Potassium Chloride/Dextrose/ Sod Cl 1,000 ml @ 75 mls/hr [id number] ONCE IV 04/17/21 14:00 04/18/21 03:19 DC 04/17/21 13:29 Ondansetron HCl (Zofran) 4 mg PRN Q4HRS PRN IVP NAUSEA/VOMITING 04/17/21 16:15 04/17/21 17:44 Justifications for Admission Other Justification ADRIANA VALDEZ MD Apr 18, 2021 07:38
[2021-04-18] MEDS: GABAPENTIN 300 MG CAPSULE. PO SCH ×2 (07:52→21:04)
[2021-04-18] MEDS: DULoxetine HCL 30 MG CAPSULE.DR PO SCH (07:52)
[2021-04-18] MEDS: CHOLECALCIFEROL (VITAMIN D3) 1,000 UNIT TABLET PO SCH (07:52)
[2021-04-18] MEDS: ASPIRIN CHEWABLE 81 MG TABLET. PO SCH (07:52)
[2021-04-18] MEDS: TRIAMCINOLONE ACETONIDE 0.1% TOPICAL CREAM 15GM TUBE. TP SCH (07:53)
--- NOTE | 2021-04-18 08:39 | CONS ---
DATE OF CONSULTATION: 04/17/2021 ATTENDING PHYSICIAN: Tonny Allen MD REASON FOR CONSULTATION: The patient was seen at the request of Dr. Ceballos for rehab evaluation. HISTORY OF PRESENT ILLNESS: This is a 65-year-old right-handed female with history of lupus erythematosus, trigeminal neuralgia, hypothyroidism, cervical carcinoma, osteoporosis, previous deep venous thrombosis, anxiety, depression, admitted through the emergency room complaining of left hip pain after a fall. She was sitting and when she went to stand, she collapsed on the front porch. She states she landed on her bottom and also did hit her head without any loss of consciousness. The patient admits some numbness in her lower extremities while upstanding for the last week about 3 times momentarily. The patient admits to chronic neck and lower back pain, had gone through lumbar epidural steroid injection in the past. She denies any significant back pain itself at present time before this fall. The patient was found with nondisplaced left sacral wing fracture with associated superior and inferior pubic rami fractures. The patient admits some nausea this afternoon. She admits being hungry. ALLERGIES: SHE IS KNOWN ALLERGIC TO AMOXICILLIN. PAST SURGICAL HISTORY: The patient is status post a partial hysterectomy and cholecystectomy. FAMILY HISTORY: Lupus erythematosus. PHYSICAL EXAMINATION: The patient on physical examination today revealed a middle-aged female. She is alert, oriented to time, place, person and circumstance and follows commands appropriately. Moves all 4 extremities voluntarily where she had 4+/5 grade muscle strength. Deep tendon reflexes are decreased overall with absent ankle jerks and she had equal perception of touch and pinprick sensation bilaterally. She had significant pain on attempts at movement of her left hip including passive and also more so active assistive and active resistive movements. The patient had tenderness to palpation over the left groin and left buttock area. She is hesitant to try to roll from side to side at present time. No significant tenderness to palpation of cervical spine area. Her skin is intact at this time. ASSESSMENT: 1. A middle-aged female with recent fall and fractured pelvis, left superior and inferior pubic rami and also left sacral wing with significant pain and mobility and self-care limitations. 2. Clinical evidence of peripheral neuropathy. 3. History of chronic neck and back pain with radiological evidence of degenerative disk disease of cervical and lumbar vertebrae. No clinical evidence of ongoing cervical or lumbar radiculopathy. 4. The patient with known lupus erythematosus, trigeminal neuralgia, previous cerebrovascular accident, cervical carcinoma, hypothyroidism, anxiety, depression and osteoporosis. RECOMMENDATIONS: Agree with the plans per physical therapy and occupational therapy to get her up as tolerated, to consider sacroplasty, to consult interventional radiology for consideration of it. She might need long term care unit transfer as she is going to be by herself and her goes to work and she had about 3 steps to [address] the house. Dr. Ceballos, I appreciate asking me to participate in the care of this interesting patient. I will be glad to see her for followup with you on as needed basis. TANYA/MITESH/DARLENE DR: Amelia TID: [id number]
[2021-04-18 11:21] VITALS: BP 132/70
[2021-04-18] MEDS: KETOROLAC 30 MG/ML VIAL. IVP PRN ×2 (11:45→18:04)
--- NOTE | 2021-04-18 14:28 | PDOC ---
PROGRESS NOTES Date of Service DATE: 04/18/21 TIME: 14:24 Subjective Subjective She admits continued left groin area. Objective Objective Vital Signs Date Time Temp Pulse Resp B/P (MAP) Pulse Ox O2 Delivery O2 Flow Rate FiO2 04/18/21 11:21 98.0 64 20 132/70 (90) 96 Room Air 98.0 Intake and Output 04/18/21 06:59 Intake Total 230 ml Output Total 2850 ml Balance -2620 ml Intake Oral 230 ml Output Urine Total 2850 ml Physical Exam Physical Exam She got up with physical therapy tis AM She is alert,supine in bed and seems to be resting comfortably. Assessment Assessment Problems Medical Problems: (1) Pubic ramus fracture Status: Acute (2) Sacral fracture, closed Status: Acute Plan Plan of Care To continue present rehab efforts as tolerated. Comment Review of Relevant I have reviewed the following items yuridia (where applicable) has been applied. Labs Laboratory Tests Test 04/16/21 18:03 04/16/21 18:12 04/17/21 00:01 White Blood Count 8.1 x10^3/uL (4.0-11.0) Red Blood Count 3.69 x10^6/uL (3.50-5.40) Hemoglobin 11.7 g/dL (12.0-15.5) Hematocrit 35.2 % (36.0-47.0) Mean Corpuscular Volume 95 fL (79-100) Mean Corpuscular Hemoglobin 32 pg (25-35) Mean Corpuscular Hemoglobin Concent 33 g/dL (31-37) Red Cell Distribution Width 12.8 % (11.5-14.5) Platelet Count 268 x10^3/uL (140-400) Neutrophils (%) (Auto) 80 % (31-73) Lymphocytes (%) (Auto) 11 % (24-48) Monocytes (%) (Auto) 6 % (0-9) Eosinophils (%) (Auto) 3 % (0-3) Basophils (%) (Auto) 0 % (0-3) Neutrophils # (Auto) 6.4 x10^3/uL (1.8-7.7) Lymphocytes # (Auto) 0.9 x10^3/uL (1.0-4.8) Monocytes # (Auto) 0.5 x10^3/uL (0.0-1.1) Eosinophils # (Auto) 0.2 x10^3/uL (0.0-0.7) Basophils # (Auto) 0.0 x10^3/uL (0.0-0.2) Sodium Level 140 mmol/L (136-145) Potassium Level 3.9 mmol/L (3.5-5.1) Chloride Level 106 mmol/L (98-107) Carbon Dioxide Level 28 mmol/L (21-32) Anion Gap 6 (6-14) 19 mmol/L (6-14) Blood Urea Nitrogen 13 mg/dL (7-20) Creatinine 0.6 mg/dL (0.6-1.0) Estimated GFR (Cockcroft-Gault) 100.0 BUN/Creatinine Ratio 22 (6-20) Glucose Level 88 mg/dL (70-99) 89 mg/dL (70-99) Calcium Level 8.1 mg/dL (8.5-10.1) Total Bilirubin 0.2 mg/dL (0.2-1.0) Aspartate Amino Transf (AST/SGOT) 40 U/L (15-37) Alanine Aminotransferase (ALT/SGPT) 46 U/L (14-59) Alkaline Phosphatase 121 U/L (46-116) Total Protein 5.2 g/dL (6.4-8.2) Albumin 2.6 g/dL (3.4-5.0) Albumin/Globulin Ratio 1.0 (1.0-1.7) Bedside Hemoglobin 11.6 g/dL (12-15) Bedside Hematocrit 34 % (36-40) Bedside Sodium 142 mmol/L (135-145) Bedside Potassium 3.9 mmol/L (3.5-5.0) Bedside Chloride 103 mmol/L (98-110) Bedside Total CO2 24 mmol/L (23-32) Bedside Blood Urea Nitrogen 13 mg/dL (8-26) Bedside Creatinine 0.6 mg/dL (0.5-1.4) Bedside Ionized Calcium (Daryl) 1.13 mmol/L (1.13-1.32) Vitamin B12 Level 467 pg/mL (247-911) Medications Current Medications Hydromorphone HCl (Dilaudid) 0.5 mg PRN Q30MIN PRN IV SEVERE PAIN 7-10 Last administered on 04/16/21at 21:19; Start 7/22/21 at 16:00; Stop 04/16/21 at 21:19; Status DC Sodium Chloride 1,000 ml @ 1,000 mls/hr 1X ONCE IV Last administered on 04/16/21at 16:19; Start 04/16/21 at 16:15; Stop 04/16/21 at 17:14; Status DC Ondansetron HCl (Zofran) 4 mg 1X PRN IV NAUSEAS Last administered on 04/16/21at 16:17; Start 04/16/21 at 16:15; Stop 04/16/21 at 16:19; Status DC Morphine Sulfate (Morphine Sulfate) 2 mg PRN Q2HR PRN IV PAIN Last administered on 04/17/21at 09:17; Start 04/16/21 at 19:15; Stop 04/17/21 at 09:22; Status DC Lorazepam (Ativan Inj) 2 mg PRN Q4HRS PRN IVP ANXIETY / AGITATION; Start 04/16/21 at 19:45; Stop 04/18/21 at 11:08; Status DC Morphine Sulfate (Morphine Sulfate) 4 mg PRN Q3HRS PRN IV PAIN Last administered on 04/17/21at 00:52; Start 04/16/21 at 19:45; Stop 04/17/21 at 11:06; Status DC Ondansetron HCl (Zofran) 4 mg PRN Q6HRS PRN IVP NAUSEA/VOMITING Last administered on 04/17/21at 13:23; Start 04/16/21 at 19:45; Stop 04/17/21 at 16:17; Status DC Al Hydroxide/Mg Hydroxide (Mylanta Plus Xs) 30 ml PRN Q3HRS PRN PO HEARTBURN / GAS; Start 04/16/21 at 19:45 Calcium Carbonate/ Glycine (Tums) 500 mg PRN Q3HRS PRN PO UPSET STOMACH; Start 04/16/21 at 19:45 Zolpidem Tartrate (Ambien) 5 mg PRN QHS PRN PO INSOMNIA, MAY REPEAT IN 1HR; Start 04/16/21 at 19:45 Acetaminophen/ Hydrocodone Bitart (Lortab 5/325) 1 tab PRN Q4HRS PRN PO MILD PAIN 1-3; Start 04/16/21 at 19:45 Acetaminophen/ Hydrocodone Bitart (Lortab 5/325) 2 tab PRN Q4HRS PRN PO MODERATE PAIN, SEVERE PAIN; Start 04/16/21 at 19:45 Oxycodone/ Acetaminophen (Percocet 5/325) 1 tab PRN Q4HRS PRN PO MILD PAIN, 2ND CHOICE; Start 04/16/21 at 19:45 Oxycodone/ Acetaminophen (Percocet 5/325) 2 tab PRN Q4HRS PRN PO MOD-SEVERE PAIN, 2ND CHOICE Last administered on 04/18/21at 11:50; Start 04/16/21 at 19:45 Acetaminophen (Tylenol) 650 mg PRN Q6HRS PRN PO Headaches, Temp > 101.5F; Start 04/16/21 at 19:45 Magnesium Hydroxide (Milk Of Magnesia) 2,400 mg PRN Q12HR PRN PO CONSTIPATION; Start 04/16/21 at 19:45 Heparin Sodium (Porcine) (Heparin Sodium) 5,000 unit Q8HRS SQ Last administered on 04/18/21at 05:56; Start 04/16/21 at 22:00 Albuterol Sulfate (Ventolin Neb Soln) 2.5 mg PRN Q4HRS PRN INH wheezing; Start 04/17/21 at 09:30 Aspirin (Aspirin Chewable) 81 mg DAILY PO Last administered on 04/18/21at 07:52; Start 04/17/21 at 10:00 Vitamin D (Vitamin D3) 1,000 unit DAILY PO Last administered on 04/18/21at 07:52; Start 04/17/21 at 10:00 Levothyroxine Sodium (Synthroid) 150 mcg DAILY06 PO Last administered on 04/18/21at 05:51; Start 04/17/21 at 10:30 Triamcinolone Acetonide (Kenalog 0.1%) 1 cedrick DAILY TP ; Start 04/17/21 at 10:00 Carbamazepine (TEGretol XR) 200 mg DAILY PO Last administered on 04/18/21at 07:52; Start 04/17/21 at 11:00 Duloxetine HCl (Cymbalta) 60 mg DAILY PO Last administered on 04/18/21at 07:52; Start 04/17/21 at 10:00 Gabapentin (Neurontin) 300 mg BID PO Last administered on 04/18/21at 07:52; Start 04/17/21 at 10:00 Pantoprazole Sodium (Protonix) 40 mg DAILYAC PO Last administered on 04/18/21at 05:52; Start 04/17/21 at 11:30 Morphine Sulfate (Morphine Sulfate) 4 mg PRN Q3HRS PRN IV PAIN; Start 04/17/21 at 11:15; Stop 04/17/21 at 12:58; Status DC Hydromorphone HCl (Dilaudid) 0.5 mg PRN Q3HRS PRN IVP PAIN Last administered on 04/17/21at 13:23; Start 04/17/21 at 13:00; Stop 04/18/21 at 11:08; Status DC Potassium Chloride/Dextrose/ Sod Cl 1,000 ml @ 75 mls/hr [id number] ONCE IV Last administered on 04/17/21at 13:29; Start 04/17/21 at 14:00; Stop 04/18/21 at 0 3:19; Status DC Ondansetron HCl (Zofran) 4 mg PRN Q4HRS PRN IVP NAUSEA/VOMITING Last administered on 04/17/21at 17:44; Start 04/17/21 at 16:15 Ketorolac Tromethamine (Toradol 30mg Vial) 30 mg PRN Q6HRS PRN IVP INFLAMMATION Last administered on 04/18/21at 11:45; Start 04/18/21 at 11:15 Active Scripts Active Reported Imodium A-D (Loperamide HCl) 2 Mg Capsule 2 Mg PO PRN PRN Ventolin Hfa Inhaler (Albuterol Sulfate) 18 Gm Hfa.aer.ad 90 Mcg INH PRN PRN Proair Hfa (Albuterol Sulfate) 8.5 Gm Hfa.aer.ad 2 Puff IH PRN Q4-6HRS PRN 21 Days Triamcinolone Acetonide 0.1% Cream (Triamcinolone Acetonide) 15 Gm Cream..g. 1 Cedrick TP PRN Omeprazole 20 Mg Capsule.dr 1 Cap PO DAILY Cymbalta (Duloxetine Hcl) 60 Mg Capsule.dr 1 Cap PO DAILY Meloxicam 15 Mg Tablet 1 Tab PO DAILY 30 Days Gabapentin 600 Mg Tablet 300 Mg PO BID Carbamazepine 100 Mg Cpmp.12hr 200 Mg PO DAILY Levothyroxine Sodium 150 Mcg Tablet 1 Tab PO DAILY Vitamin D3 (Vitamin D) 25 Mcg Tablet 75 Mcg PO DAILY 1,000 UNITS = 25 MCG Aspirin 81 Mg Tab.chew 1 Tab PO DAILY Hydrocodone-Apap 10-325 (Hydrocodone Bit/Acetaminophen) 1 Tab Tablet 1 Tab PO QID PRN Vitals/I & O Vital Sign - Last 24 Hours 04/17/21 04/17/21 04/17/21 04/17/21 15:00 19:41 20:00 21:17 Temp 98.2 98.7 98.2 98.7 Pulse 59 60 Resp 18 20 B/P (MAP) 135/81 (99) 142/64 (90) Pulse Ox 98 99 O2 Delivery Room Air Room Air Room Air Room Air 04/17/21 04/17/21 04/18/21 04/18/21 21:50 23:07 03:28 05:51 Temp 99.4 98.5 99.4 98.5 Pulse 64 60 Resp 16 18 B/P (MAP) 139/70 (93) 123/62 (82) Pulse Ox 95 96 O2 Delivery Room Air Room Air Room Air Room Air 04/18/21 04/18/21 07:00 11:21 Temp 97.9 98.0 97.9 98.0 Pulse 60 64 Resp 20 20 B/P (MAP) 135/63 (87) 132/70 (90) Pulse Ox 98 96 O2 Delivery Room Air Room Air Intake and Output 04/17/21 04/17/21 04/18/21 14:59 22:59 06:59 Intake Total 230 ml Output Total 2850 ml Balance -2620 ml Justifications for Admission Other Justification Nutrition Consultation Dietary Evaluation: Recommendations by RD: Dietary education by RD Comments: REC advance to regular diet when able Expected Outcomes/Goals: to meet >75% est nutr needs Interpretation of weight loss: >10% in 6 months Malnutrition Findings: Body Fat Depletion (Non Severe: Mod to Severe Weight Status: Underweight LAYLA CERVANTES MD Apr 18, 2021 14:28
[2021-04-18 15:00] VITALS: BP 121/67
[2021-04-18 19:00] VITALS: BP 124/66
--- NOTE | 2021-04-18 19:16 | PDOC2 ---
Consult: Date of consult April 18, 2021 Reason for consultation: Pubic rami fractures HISTORY: Patient seen evaluated today in room bed for 30. She was admitted secondary to injury after a fall. She states she fell down onto her left side and the posterior aspect of her buttock. Evaluation in the emergency room with radiographic evaluation reveals a superior and inferior left pubic rami fracture as well as a nondisplaced crescent fracture of the left sacral ala. She has difficulty moving her hip and walking. Denies any current numbness or tingling. PAST MEDICAL/SURGICAL/FAMILY HISTORY/SOCIAL HISTORY/ AND ROS were reviewed on intake to include multiple system review. Copied to EHR. EXAM: -------- Well-nourished well-developed patient General: No acute distress. HEENT: Normocephalic. Respiratory: Respirations are non-labored. Cardiovascular: No edema. Abdomen: soft Neurologic: Alert. Psychiatric: Cooperative. Left lower extremity reveals limited passive and active range of motion due to pain. She has generalized tenderness to palpation along the anterior pelvic brim as well as over the greater trochanter and posterior to it. Neurocirculatory status is grossly intact. ASSESSMENT & PLAN: Left superior and inferior pubic rami fracture with left sacral ala fracture nondisplaced At this point she can weight-bear as tolerated. I discussed with her that it would be likely 4 to 6 weeks until she feels minimal pain with ambulation. She will likely need to use a walker. We will have her work with physical therapy. I will follow her as an outpatient and see her back in 1 month for repeat x-ray. ADRIANA JIMENEZ DO Apr 18, 2021 7:16 pm
[2021-04-18 23:00] VITALS: BP 133/72
[2021-04-19 03:00] VITALS: BP 120/72
[2021-04-19] MEDS: PANTOPRAZOLE 40 MG TABLET.DR. PO SCH (04:53)
[2021-04-19] MEDS: LEVOTHYROXINE 150 MCG TABLET PO SCH (04:53)
[2021-04-19] MEDS: oxyCODONE/APAP 5/325 1 TAB TABLET PO PRN ×3 (04:53→16:20)
[2021-04-19] MEDS: HEPARIN for SUB-Q USE 5,000 UNIT/ML VIAL. SQ SCH (04:57)
[2021-04-19] MEDS: KETOROLAC 30 MG/ML VIAL. IVP PRN ×2 (05:50→12:41)
[2021-04-19 07:00] VITALS: BP 125/80
--- NOTE | 2021-04-19 08:01 | PDOC ---
[facility] [facility] PROGRESS NOTE Date of Service DOS: DATE: 04/19/21 TIME: 08:01 Chief Complaint Chief Complaint A/P: Minimally displaced left superior and inferior pubic rami fracture Nondisplaced transverse fracture of the left sacral wing Dehydration Normocytic anemia Lupus History of blood clots Trigeminal neuralgia Hypothyroidism Severe protein malnutrition Plan: Place consultation orthopedic surgery Provide IV fluids and pain management Resume home medications PT/OT FEN - Cardiac diet; NPO after midnight PPX - Heparin FULL CODE Dispo - inpatient for above Advance Care Planning: Total time spent [id number] with patient 16 minutes in discussion with goals of care, comfort care, end-of-life care, pain management, code status; patient names her (Derrek Callaway) as surrogate decision- maker. History of Present Illness History of Present Illness Ms Callaway is a 65-year-old female with past medical history of lupus, trigeminal neuralgia, hypothyroidism, cervical cancer, osteoporosis, history of blood clots, anxiety/depression, who presents to the ED with complaints of left hip pain after a fall. States she was sitting and when she went to stand she collapsed on the front porch. States she landed on her bottom and did hit her head, but denies LOC. She reports pain 10/10 at that time, with some associated numbness. States that this is the third time this week that she has had this type of numbness and weakness in her lower extremities, which is new and concerning for her. She denies any associated chest pain, nausea, or shortness of breath. Labs on admission showed hemoglobin 11.7, hematocrit 35.2, BUN 13, creatinine 0.6, albumin 2.6, with BUN/creatinine ratio 22. CT o abdomen/pelvis shows a nondisplaced left sacral wing fracture with superior and inferior pubic rami fractures. Admitted patient for further medical management. 04/17: She is having pain and headache with morphine. Notes that Dilaudid helped her pain. She is asking for diet. No fever or shortness of breath or chest pain. She does note history of 2 prior pulmonary emboli but notes that she had a negative prothrombotic work-up at the [facility] previously and is not on long-term anticoagulation. 04/18: Willett placed for comfort. Has significant nausea with Dilaudid and morphine. Tolerating p.o. oxycodone well. Advised Toradol for pain prior to therapy today. Her goal is to go home. No chest pain or shortness of breath. No bowel movement this yet. Able to have a bowel movement on bedpan. Significant pain with bleeding when she rolled onto her right hip earlier this morning. Otherwise afebrile no shortness of breath no chest pain. She has been offered consideration of s acroplasty by PMR Vitals/I&O Vitals/I&O: Vital Signs Date Time Temp Pulse Resp B/P (MAP) Pulse Ox O2 Delivery O2 Flow Rate FiO2 04/19/21 05:30 Room Air 04/19/21 03:00 98.3 63 18 120/72 (88) 95 98.3 I & O 04/18/21 04/18/21 04/19/21 15:00 23:00 07:00 Intake Total 500 ml Output Total 500 ml 450 ml Balance 500 ml -500 ml -450 ml Physical Exam General: Alert, Oriented X3, Cooperative Heart: Regular rate, Normal S1, Normal S2 Lungs: Clear Abdomen: Normal bowel sounds, Soft Extremities: No clubbing, No cyanosis Skin: No rashes, No breakdown Assessment and Plan Assessmemt and Plan Problems Medical Problems: (1) Pubic ramus fracture Status: Acute (2) Sacral fracture, closed Status: Acute Comment Review of Relevant I have reviewed the following items yuridia (where applicable) has been applied. Medications: Current Medications Medications (Trade) Dose Ordered Sig/Verónica Route PRN Reason Start Time Stop Time Status Last Admin Dose Admin Ketorolac Tromethamine (Toradol 30mg Vial) 30 mg PRN Q6HRS PRN IVP INFLAMMATION 04/18/21 11:15 04/19/21 05:50 Justifications for Admission Other Justification ADRIANA VALDEZ MD Apr 19, 2021 08:01
[2021-04-19] MEDS: GABAPENTIN 300 MG CAPSULE. PO SCH ×2 (08:51→21:29)
[2021-04-19] MEDS: ASPIRIN CHEWABLE 81 MG TABLET. PO SCH (08:51)
[2021-04-19] MEDS: DULoxetine HCL 30 MG CAPSULE.DR PO SCH (08:52)
[2021-04-19] MEDS: CHOLECALCIFEROL (VITAMIN D3) 1,000 UNIT TABLET PO SCH (08:52)
[2021-04-19] MEDS: TRIAMCINOLONE ACETONIDE 0.1% TOPICAL CREAM 15GM TUBE. TP SCH (09:00)
[2021-04-19 11:00] VITALS: BP 127/67
[2021-04-19] MEDS ORDERED: [UNRECOGNIZED DRUG - REMARK] MC PRN (14:00)
[2021-04-19 15:00] VITALS: BP 126/71
[2021-04-19 19:00] VITALS: BP 121/64
[2021-04-19 23:00] VITALS: BP 151/61
[2021-04-20] MEDS: oxyCODONE/APAP 5/325 1 TAB TABLET PO PRN ×3 (01:26→20:50)
[2021-04-20 03:00] VITALS: BP 112/67
[2021-04-20 04:54] LABS: BASO % 1 % (0-3); EOS # 0.5 x10^3/uL (0.0-0.7); EOS % 9 % (0-3); HEMATOCRIT 33.2 % (36.0-47.0); HEMOGLOBIN 11.3 g/dL (12.0-15.5); LYMPH % 20 % (24-48); MEAN CORPUSCULAR HEMOGLOBIN 33 pg (25-35); MEAN CORPUSCULAR HGB CONC 34 g/dL (31-37); MEAN CORPUSCULAR VOLUME 96 fL (79-100); MONO # 0.4 x10^3/uL (0.0-1.1); MONO % 9 % (0-9); NEUT % 61 % (31-73); PLATELET COUNT 254 x10^3/uL (140-400); RED BLOOD COUNT 3.47 x10^6/uL (3.50-5.40); RED CELL DISTRIBUTION WIDTH 12.8 % (11.5-14.5)
[2021-04-20 05:01] LABS: PROTHROMBIN TIME PATIENT 13.7 SEC (11.7-14.0)
[2021-04-20 05:07] LABS: CALCIUM 8.5 mg/dL (8.5-10.1); CREATININE 0.6 mg/dL (0.6-1.0); POTASSIUM 3.9 mmol/L (3.5-5.1)
[2021-04-20 06:36] VITALS: BP 118/60
[2021-04-20] MEDS: LEVOTHYROXINE 150 MCG TABLET PO SCH (06:41)
--- NOTE | 2021-04-20 08:35 | PDOC ---
Provider Note Date of Service: DATE: 04/20/21 TIME: 08: Provider Note IR NOTE Consulted for consideration of sacroplasty. Patient has acute left sup and inf pubic rami fractures and an essentially nondisplaced left ala fracture. Her bone mineral density is subjectively low on imaging exams. Would consider a followup DEXA and treatment as indicated. She will have pain with ambulation secondary to the rami and alar fractures. Also per notes the patient states she has new neurological symptoms with numbness and weakness in her lower extremities. Would consider Lumbar and Pelvic MRI and if appropriate a neurosurgical consultation. Recommend conservative treatment. Should this fail, the idea of sacroplasty could be revisited. Justifications for Admission Other Justification BOAZ MENDOZA MD Apr 20, 2021 08:35
--- NOTE | 2021-04-20 08:54 | PDOC ---
PROGRESS NOTES Date of Service DATE: 04/20/21 TIME: 08:49 Subjective Subjective No new complaints. Objective Objective Vital Signs Date Time Temp Pulse Resp B/P (MAP) Pulse Ox O2 Delivery O2 Flow Rate FiO2 04/20/21 06:36 97.6 64 18 118/60 (79) 97 Room Air 97.6 Intake and Output 04/20/21 07:00 Intake Total 1640 ml Balance 1640 ml Intake Oral 1640 ml # Voids 1 Physical Exam Physical Exam She is alert and comfortable supine in bed and still had Willett catheter in place. She continues to require physical assistance for bed mobility and transfers. recommends MRI scan of lumbar spine and pelvis and to hold off sacroplasty for the time being. Physical therapy recommends acute rehab which may e too much with her continued significant left hip area pain. Assessment Assessment Problems Medical Problems: (1) Pubic ramus fracture Status: Acute (2) Sacral fracture, closed Status: Acute Plan Plan of Care To SNF when medically stable. To d/c Willett catheter and give her a voiding trial. Comment Review of Relevant I have reviewed the following items yuridia (where applicable) has been applied. Labs Laboratory Tests Test 04/20/21 03:30 White Blood Count 5.0 x10^3/uL (4.0-11.0) Red Blood Count 3.47 x10^6/uL (3.50-5.40) Hemoglobin 11.3 g/dL (12.0-15.5) Hematocrit 33.2 % (36.0-47.0) Mean Corpuscular Volume 96 fL (79-100) Mean Corpuscular Hemoglobin 33 pg (25-35) Mean Corpuscular Hemoglobin Concent 34 g/dL (31-37) Red Cell Distribution Width 12.8 % (11.5-14.5) Platelet Count 254 x10^3/uL (140-400) Neutrophils (%) (Auto) 61 % (31-73) Lymphocytes (%) (Auto) 20 % (24-48) Monocytes (%) (Auto) 9 % (0-9) Eosinophils (%) (Auto) 9 % (0-3) Basophils (%) (Auto) 1 % (0-3) Neutrophils # (Auto) 3.0 x10^3/uL (1.8-7.7) Lymphocytes # (Auto) 1.0 x10^3/uL (1.0-4.8) Monocytes # (Auto) 0.4 x10^3/uL (0.0-1.1) Eosinophils # (Auto) 0.5 x10^3/uL (0.0-0.7) Basophils # (Auto) 0.0 x10^3/uL (0.0-0.2) Prothrombin Time 13.7 SEC (11.7-14.0) Prothromb Time International Ratio 1.1 (0.8-1.1) Sodium Level 141 mmol/L (136-145) Potassium Level 3.9 mmol/L (3.5-5.1) Chloride Level 106 mmol/L (98-107) Carbon Dioxide Level 29 mmol/L (21-32) Anion Gap 6 (6-14) Blood Urea Nitrogen 14 mg/dL (7-20) Creatinine 0.6 mg/dL (0.6-1.0) Estimated GFR (Cockcroft-Gault) 100.0 Glucose Level 94 mg/dL (70-99) Calcium Level 8.5 mg/dL (8.5-10.1) Laboratory Tests Test 04/20/21 03:30 White Blood Count 5.0 x10^3/uL (4.0-11.0) Red Blood Count 3.47 x10^6/uL (3.50-5.40) Hemoglobin 11.3 g/dL (12.0-15.5) Hematocrit 33.2 % (36.0-47.0) Mean Corpuscular Volume 96 fL (79-100) Mean Corpuscular Hemoglobin 33 pg (25-35) Mean Corpuscular Hemoglobin Concent 34 g/dL (31-37) Red Cell Distribution Width 12.8 % (11.5-14.5) Platelet Count 254 x10^3/uL (140-400) Neutrophils (%) (Auto) 61 % (31-73) Lymphocytes (%) (Auto) 20 % (24-48) Monocytes (%) (Auto) 9 % (0-9) Eosinophils (%) (Auto) 9 % (0-3) Basophils (%) (Auto) 1 % (0-3) Neutrophils # (Auto) 3.0 x10^3/uL (1.8-7.7) Lymphocytes # (Auto) 1.0 x10^3/uL (1.0-4.8) Monocytes # (Auto) 0.4 x10^3/uL (0.0-1.1) Eosinophils # (Auto) 0.5 x10^3/uL (0.0-0.7) Basophils # (Auto) 0.0 x10^3/uL (0.0-0.2) Prothrombin Time 13.7 SEC (11.7-14.0) Prothromb Time International Ratio 1.1 (0.8-1.1) Sodium Level 141 mmol/L (136-145) Potassium Level 3.9 mmol/L (3.5-5.1) Chloride Level 106 mmol/L (98-107) Carbon Dioxide Level 29 mmol/L (21-32) Anion Gap 6 (6-14) Blood Urea Nitrogen 14 mg/dL (7-20) Creatinine 0.6 mg/dL (0.6-1.0) Estimated GFR (Cockcroft-Gault) 100.0 Glucose Level 94 mg/dL (70-99) Calcium Level 8.5 mg/dL (8.5-10.1) Medications Current Medications Hydromorphone HCl (Dilaudid) 0.5 mg PRN Q30MIN PRN IV SEVERE PAIN 7-10 Last administered on 04/16/21at 21:19; Start 04/16/21 at 16:00; Stop 04/16/21 at 21:19; Status DC Sodium Chloride 1,000 ml @ 1,000 mls/hr 1X ONCE IV Last administered on 04/16/21at 16:19; Start 04/16/21 at 16:15; Stop 04/16/21 at 17:14; Status DC Ondansetron HCl (Zofran) 4 mg 1X PRN IV NAUSEAS Last administered on 04/16/21at 16:17; Start 04/16/21 at 16:15; Stop 04/16/21 at 16:19; Status DC Morphine Sulfate (Morphine Sulfate) 2 mg PRN Q2HR PRN IV PAIN Last administered on 04/17/21at 09:17; Start 04/16/21 at 19:15; Stop 04/17/21 at 09:22; Status DC Lorazepam (Ativan Inj) 2 mg PRN Q4HRS PRN IVP ANXIETY / AGITATION; Start 04/16/21 at 19:45; Stop 04/18/21 at 11:08; Status DC Morphine Sulfate (Morphine Sulfate) 4 mg PRN Q3HRS PRN IV PAIN Last administered on 04/17/21at 00:52; Start 04/16/21 at 19:45; Stop 04/17/21 at 11:06; Status DC Ondansetron HCl (Zofran) 4 mg PRN Q6HRS PRN IVP NAUSEA/VOMITING Last administered on 04/17/21at 13:23; Start 04/16/21 at 19:45; Stop 04/17/21 at 16:17; Status DC Al Hydroxide/Mg Hydroxide (Mylanta Plus Xs) 30 ml PRN Q3HRS PRN PO HEARTBURN / GAS; Start 04/16/21 at 19:45 Calcium Carbonate/ Glycine (Tums) 500 mg PRN Q3HRS PRN PO UPSET STOMACH; Start 04/16/21 at 19:45 Zolpidem Tartrate (Ambien) 5 mg PRN QHS PRN PO INSOMNIA, MAY REPEAT IN 1HR; Start 04/16/21 at 19:45 Acetaminophen/ Hydrocodone Bitart (Lortab 5/325) 1 tab PRN Q4HRS PRN PO MILD PAIN 1-3; Start 04/16/21 at 19:45 Acetaminophen/ Hydrocodone Bitart (Lortab 5/325) 2 tab PRN Q4HRS PRN PO MODERATE PAIN, SEVERE PAIN; Start 04/16/21 at 19:45 Oxycodone/ Acetaminophen (Percocet 5/325) 1 tab PRN Q4HRS PRN PO MILD PAIN, 2ND CHOICE; Start 04/16/21 at 19:45 Oxycodone/ Acetaminophen (Percocet 5/325) 2 tab PRN Q4HRS PRN PO MOD-SEVERE PAIN, 2ND CHOICE Last administered on 04/20/21at 01:26; Start 04/16/21 at 19:45 Acetaminophen (Tylenol) 650 mg PRN Q6HRS PRN PO Headaches, Temp > 101.5F; Start 04/16/21 at 19:45 Magnesium Hydroxide (Milk Of Magnesia) 2,400 mg PRN Q12HR PRN PO CONSTIPATION; Start 04/16/21 at 19:45 Heparin Sodium (Porcine) (Heparin Sodium) 5,000 unit Q8HRS SQ Last administered on 04/19/21 04:57; Start 04/16/21 at 22:00; Stop 04/19/21 at 10:57; Status DC Albuterol Sulfate (Ventolin Neb Soln) 2.5 mg PRN Q4HRS PRN INH wheezing; Start 04/17/21 at 09:30 Aspirin (Aspirin Chewable) 81 mg DAILY PO Last administered on 04/19/21 08:51; Start 04/17/21 at 10:00 Vitamin D (Vitamin D3) 1,000 unit DAILY PO Last administered on 04/19/21 08:52; Start 04/17/21 at 10:00 Levothyroxine Sodium (Synthroid) 150 mcg DAILY06 PO Last administered on 04/20/21 06:41; Start 04/17/21 at 10:30 Triamcinolone Acetonide (Kenalog 0.1%) 1 cedrick DAILY TP ; Start 04/17/21 at 10:00 Carbamazepine (TEGretol XR) 200 mg DAILY PO Last administered on 04/19/21at 08:52; Start 04/17/21 at 11:00 Duloxetine HCl (Cymbalta) 60 mg DAILY PO Last administered on 04/19/21 08:52; Start 04/17/21 at 10:00 Gabapentin (Neurontin) 300 mg BID PO Last administered on 04/19/21at 21:29; Start 04/17/21 at 10:00 Pantoprazole Sodium (Protonix) 40 mg DAILYAC PO Last administered on 04/19/21 04:53; Start 04/17/21 at 11:30 Morphine Sulfate (Morphine Sulfate) 4 mg PRN Q3HRS PRN IV PAIN; Start 04/17/21 at 11:15; Stop 04/17/21 at 12:58; Status DC Hydromorphone HCl (Dilaudid) 0.5 mg PRN Q3HRS PRN IVP PAIN Last administered on 04/17/21at 13:23; Start 04/17/21 at 13:00; Stop 04/18/21 at 11:08; Status DC Potassium Chloride/Dextrose/ Sod Cl 1,000 ml @ 75 mls/hr [id number] ONCE IV Last administered on 04/17/21at 13:29; Start 04/17/21 at 14:00; Stop 04/18/21 at 03:19; Status DC Ondansetron HCl (Zofran) 4 mg PRN Q4HRS PRN IVP NAUSEA/VOMITING Last administered on 04/17/21at 17:44; Start 04/17/21 at 16:15 Ketorolac Tromethamine (Toradol 30mg Vial) 30 mg PRN Q6HRS PRN IVP INFLAMMATION Last administered on 04/19/21at 12:41; Start 04/18/21 at 11:15 Info (Hold Preop Anti-Coag Meds) 1 ea CONT PRN PRN MC SEE COMMENTS; Start 04/19/21 at 14:00 Active Scripts Active Reported Imodium A-D (Loperamide HCl) 2 Mg Capsule 2 Mg PO PRN PRN Ventolin Hfa Inhaler (Albuterol Sulfate) 18 Gm Hfa.aer.ad 90 Mcg INH PRN PRN Proair Hfa (Albuterol Sulfate) 8.5 Gm Hfa.aer.ad 2 Puff IH PRN Q4-6HRS PRN 21 Days Triamcinolone Acetonide 0.1% Cream (Triamcinolone Acetonide) 15 Gm Cream..g. 1 Cedrick TP PRN Omeprazole 20 Mg Capsule.dr 1 Cap PO DAILY Cymbalta (Duloxetine Hcl) 60 Mg Capsule.dr 1 Cap PO DAILY Meloxicam 15 Mg Tablet 1 Tab PO DAILY 30 Days Gabapentin 600 Mg Tablet 300 Mg PO BID Carbamazepine 100 Mg Cpmp.12hr 200 Mg PO DAILY Levothyroxine Sodium 150 Mcg Tablet 1 Tab PO DAILY Vitamin D3 (Vitamin D) 25 Mcg Tablet 75 Mcg PO DAILY 1,000 UNITS = 25 MCG Aspirin 81 Mg Tab.chew 1 Tab PO DAILY Hydrocodone-Apap 10-325 (Hydrocodone Bit/Acetaminophen) 1 Tab Tablet 1 Tab PO QID PRN Vitals/I & O Vital Sign - Last 24 Hours 04/19/21 04/19/21 04/19/21 04/19/21 11:00 15:00 19:00 20:00 Temp 98.1 98.2 98.4 98.1 98.2 98.4 Pulse 68 19 76 Resp 17 18 18 B/P (MAP) 127/67 (87) 126/71 (89) 121/64 (83) Pulse Ox 96 95 95 O2 Delivery Room Air Room Air Room Air Room Air 04/19/21 04/20/21 04/20/21 04/20/21 23:00 01:26 01:56 03:00 Temp 97.5 97.7 97.5 97.7 Pulse 66 72 Resp 18 20 20 18 B/P (MAP) 151/61 (91) 112/67 (82) Pulse Ox 96 94 O2 Delivery Room Air Room Air Room Air 04/20/21 06:36 Temp 97.6 97.6 Pulse 64 Resp 18 B/P (MAP) 118/60 (79) Pulse Ox 97 O2 Delivery Room Air Intake and Output 04/19/21 04/19/21 04/20/21 15:00 23:00 07:00 Intake Total 760 ml 760 ml 120 ml Balance 760 ml 760 ml 120 ml Justifications for Admission Other Justification Nutrition Consultation Dietary Evaluation: Recommendations by RD: Dietary education by RD Comments: REC advance to regular diet when able Expected Outcomes/Goals: to meet >75% est nutr needs Interpretation of weight loss: >10% in 6 months Malnutrition Findings: Body Fat Depletion (Non Severe: Mod to Severe Weight Status: Underweight LAYLA CERVANTES MD Apr 20, 2021 08:54
[2021-04-20] MEDS: TRIAMCINOLONE ACETONIDE 0.1% TOPICAL CREAM 15GM TUBE. TP SCH (09:00)
[2021-04-20] MEDS: PANTOPRAZOLE 40 MG TABLET.DR. PO SCH (10:43)
[2021-04-20] MEDS: CHOLECALCIFEROL (VITAMIN D3) 1,000 UNIT TABLET PO SCH (10:43)
[2021-04-20] MEDS: ASPIRIN CHEWABLE 81 MG TABLET. PO SCH (10:44)
[2021-04-20] MEDS: GABAPENTIN 300 MG CAPSULE. PO SCH ×2 (10:44→20:47)
[2021-04-20] MEDS: DULoxetine HCL 30 MG CAPSULE.DR PO SCH (10:44)
[2021-04-20 11:00] VITALS: BP 144/71
--- NOTE | 2021-04-20 14:12 | NUR ---
SW following. Discussed with RN, pt from home with , room air, regular diet. Therapy recommending rehab. SW spoke with pt, she would prefer to go home but realizes she would be unable to manage. Pt agreeable to SNF, would like referral faxed to [facility]. SW phoned and faxed referral. SW requested COVID test for placement. RN notified. SW will continue to follow.
--- NOTE | 2021-04-20 14:20 | NUR ---
Covid PCR done and taken to lab at 1410.
--- NOTE | 2021-04-20 14:44 | PDOC ---
[employer] [facility] PROGRESS NOTE Date of Service DOS: DATE: 04/20/21 TIME: 14:43 Chief Complaint Chief Complaint A/P: Minimally displaced left superior and inferior pubic rami fracture Nondisplaced transverse fracture of the left sacral wing Dehydration Normocytic anemia Lupus History of blood clots Trigeminal neuralgia Hypothyroidism Severe protein malnutrition Plan: Place consultation orthopedic surgery Provide IV fluids and pain management Resume home medications PT/OT FEN - Cardiac diet; NPO after midnight PPX - Heparin FULL CODE Dispo - inpatient for above Advance Care Planning: Total time spent [id number] with patient 16 minutes in discussion with goals of care, comfort care, end-of-life care, pain management, code status; patient names her (Derrek Callaway) as surrogate decision- maker. History of Present Illness History of Present Illness Ms Callaway is a 65-year-old female with past medical history of lupus, trigeminal neuralgia, hypothyroidism, cervical cancer, osteoporosis, history of blood clots, anxiety/depression, who presents to the ED with complaints of left hip pain after a fall. States she was sitting and when she went to stand she collapsed on the front porch. States she landed on her bottom and did hit her head, but denies LOC. She reports pain 10/10 at that time, with some associated numbness. States that this is the third time this week that she has had this type of numbness and weakness in her lower extremities, which is new and concerning for her. She denies any associated chest pain, nausea, or shortness of breath. Labs on admission showed hemoglobin 11.7, hematocrit 35.2, BUN 13, creatinine 0.6, albumin 2.6, with BUN/creatinine ratio 22. CT o abdomen/pelvis shows a nondisplaced left sacral wing fracture with superior and inferior pubic rami fractures. Admitted patient for further medical management. 04/17: She is having pain and headache with morphine. Notes that Dilaudid helped her pain. She is asking for diet. No fever or shortness of breath or chest pain. She does note history of 2 prior pulmonary emboli but notes that she had a negative prothrombotic work-up at the [facility] previously and is not on long-term anticoagulation. 04/18: Willett placed for comfort. Has significant nausea with Dilaudid and morphine. Tolerating p.o. oxycodone well. Advised Toradol for pain prior to therapy today. Her goal is to go home. No chest pain or shortness of breath. No bowel movement this yet. Able to have a bowel movement on bedpan. Significant pain with bleeding when she rolled onto her right hip earlier this morning. Otherwise afebrile no shortness of breath no chest pain. She has been offered consideration of s acroplasty by PMR 04/20/2021 No acute events overnight. Afebrile. Patient is emotionally labile at the moment on the recliner. Complaining of overall pain. We will continue with PT, OT modalities. Patient's chart, labs, images were reviewed and discussed with RN Vitals/I&O Vitals/I&O: Vital Signs Date Time Temp Pulse Resp B/P (MAP) Pulse Ox O2 Delivery O2 Flow Rate FiO2 04/20/21 11:00 98.7 74 18 144/71 (95) 94 Room Air 98.7 I & O 04/19/21 04/19/21 04/20/21 15:00 23:00 07:00 Intake Total 760 ml 760 ml 120 ml Balance 760 ml 760 ml 120 ml Physical Exam General: Alert, Oriented X3, Cooperative Heart: Regular rate, Normal S1, Normal S2 Lungs: Clear Abdomen: Normal bowel sounds, Soft Extremities: No clubbing, No cyanosis Skin: No rashes, No breakdown Labs Labs: Laboratory Tests Test 04/20/21 03:30 White Blood Count 5.0 x10^3/uL (4.0-11.0) Red Blood Count 3.47 x10^6/uL (3.50-5.40) Hemoglobin 11.3 g/dL (12.0-15.5) Hematocrit 33.2 % (36.0-47.0) Mean Corpuscular Volume 96 fL (79-100) Mean Corpuscular Hemoglobin 33 pg (25-35) Mean Corpuscular Hemoglobin Concent 34 g/dL (31-37) Red Cell Distribution Width 12.8 % (11.5-14.5) Platelet Count 254 x10^3/uL (140-400) Neutrophils (%) (Auto) 61 % (31-73) Lymphocytes (%) (Auto) 20 % (24-48) Monocytes (%) (Auto) 9 % (0-9) Eosinophils (%) (Auto) 9 % (0-3) Basophils (%) (Auto) 1 % (0-3) Neutrophils # (Auto) 3.0 x10^3/uL (1.8-7.7) Lymphocytes # (Auto) 1.0 x10^3/uL (1.0-4.8) Monocytes # (Auto) 0.4 x10^3/uL (0.0-1.1) Eosinophils # (Auto) 0.5 x10^3/uL (0.0-0.7) Basophils # (Auto) 0.0 x10^3/uL (0.0-0.2) Prothrombin Time 13.7 SEC (11.7-14.0) Prothromb Time International Ratio 1.1 (0.8-1.1) Sodium Level 141 mmol/L (136-145) Potassium Level 3.9 mmol/L (3.5-5.1) Chloride Level 106 mmol/L (98-107) Carbon Dioxide Level 29 mmol/L (21-32) Anion Gap 6 (6-14) Blood Urea Nitrogen 14 mg/dL (7-20) Creatinine 0.6 mg/dL (0.6-1.0) Estimated GFR (Cockcroft-Gault) 100.0 Glucose Level 94 mg/dL (70-99) Calcium Level 8.5 mg/dL (8.5-10.1) Assessment and Plan Assessmemt and Plan Problems Medical Problems: (1) Pubic ramus fracture Status: Acute (2) Sacral fracture, closed Status: Acute Comment Review of Relevant I have reviewed the following items yuridia (where applicable) has been applied. Justifications for Admission Other Justification GEE STEINBERG MD Apr 20, 2021 14:44
[2021-04-20 15:00] VITALS: BP 120/68
[2021-04-20 19:00] VITALS: BP 133/62
[2021-04-20 23:00] VITALS: BP 131/63
[2021-04-21 03:00] VITALS: BP 117/69
[2021-04-21] MEDS: oxyCODONE/APAP 5/325 1 TAB TABLET PO PRN ×4 (03:35→23:22)
[2021-04-21] MEDS: PANTOPRAZOLE 40 MG TABLET.DR. PO SCH (06:16)
[2021-04-21] MEDS: LEVOTHYROXINE 150 MCG TABLET PO SCH (06:16)
[2021-04-21 07:00] VITALS: BP 113/66
[2021-04-21] MEDS: ASPIRIN CHEWABLE 81 MG TABLET. PO SCH (08:32)
[2021-04-21] MEDS: DULoxetine HCL 30 MG CAPSULE.DR PO SCH (08:32)
[2021-04-21] MEDS: CHOLECALCIFEROL (VITAMIN D3) 1,000 UNIT TABLET PO SCH (08:32)
[2021-04-21] MEDS: GABAPENTIN 300 MG CAPSULE. PO SCH ×2 (08:33→21:00)
[2021-04-21] MEDS: TRIAMCINOLONE ACETONIDE 0.1% TOPICAL CREAM 15GM TUBE. TP SCH (08:36)
--- NOTE | 2021-04-21 08:39 | PDOC ---
PROGRESS NOTES Date of Service DATE: 04/21/21 TIME: 08:32 Subjective Subjective She continues with severe pain on movement of left hip,especially weight bearing. Objective Objective Vital Signs Date Time Temp Pulse Resp B/P (MAP) Pulse Ox O2 Delivery O2 Flow Rate FiO2 04/21/21 04:28 Room Air 04/21/21 03:35 18 94 04/21/21 03:00 97.9 67 117/69 (85) 97.9 Intake and Output 04/21/21 07:00 Intake Total 300 ml Output Total 1300 ml Balance -1000 ml Intake Oral 300 ml Output Urine Total 1300 ml Physical Exam Physical Exam She is alert,sitting in bedside commode and she continues to require physical assistance for transfers. Abdomen: Normal bowel sounds, Soft, No tenderness, No hepatosplenomegaly, No masses Heart: Regular rate, Normal S1, Normal S2, No murmurs, Gallops Extremities: No clubbing, No cyanosis, No edema, Normal pulses, No tenderne ss/swelling General: Alert, Oriented X3, Cooperative, No acute distress HEENT: Mucous membr. moist/pink Lungs: Clear to auscultation, Normal air movement MUSCULOSKELETAL: No joint tenderness, No deformity, No swelling, No muscular tenderness noted, Full range of motion without pain Neck: Supple, No JVD, No thyromegaly Neuro: Normal gait, Normal speech, Normal tone, Sensation intact, Reflexes 2+ Psych/Mental Status: Mental status NL, Mood NL Skin: No rashes, No breakdown, No significant lesion Assessment Assessment Problems Medical Problems: (1) Pubic ramus fracture Status: Acute (2) Sacral fracture, closed Status: Acute Plan Plan of Care To SNF for continued care when medically stable. Comment Review of Relevant I have reviewed the following items yuridia (where applicable) has been applied. Labs Laboratory Tests Test 04/20/21 03:30 04/20/21 14:10 White Blood Count 5.0 x10^3/uL (4.0-11.0) Red Blood Count 3.47 x10^6/uL (3.50-5.40) Hemoglobin 11.3 g/dL (12.0-15.5) Hematocrit 33.2 % (36.0-47.0) Mean Corpuscular Volume 96 fL (79-100) Mean Corpuscular Hemoglobin 33 pg (25-35) Mean Corpuscular Hemoglobin Concent 34 g/dL (31-37) Red Cell Distribution Width 12.8 % (11.5-14.5) Platelet Count 254 x10^3/uL (140-400) Neutrophils (%) (Auto) 61 % (31-73) Lymphocytes (%) (Auto) 20 % (24-48) Monocytes (%) (Auto) 9 % (0-9) Eosinophils (%) (Auto) 9 % (0-3) Basophils (%) (Auto) 1 % (0-3) Neutrophils # (Auto) 3.0 x10^3/uL (1.8-7.7) Lymphocytes # (Auto) 1.0 x10^3/uL (1.0-4.8) Monocytes # (Auto) 0.4 x10^3/uL (0.0-1.1) Eosinophils # (Auto) 0.5 x10^3/uL (0.0-0.7) Basophils # (Auto) 0.0 x10^3/uL (0.0-0.2) Prothrombin Time 13.7 SEC (11.7-14.0) Prothromb Time International Ratio 1.1 (0.8-1.1) Sodium Level 141 mmol/L (136-145) Potassium Level 3.9 mmol/L (3.5-5.1) Chloride Level 106 mmol/L (98-107) Carbon Dioxide Level 29 mmol/L (21-32) Anion Gap 6 (6-14) Blood Urea Nitrogen 14 mg/dL (7-20) Creatinine 0.6 mg/dL (0.6-1.0) Estimated GFR (Cockcroft-Gault) 100.0 Glucose Level 94 mg/dL (70-99) Calcium Level 8.5 mg/dL (8.5-10.1) SARS-CoV-2 RNA (TAMIE) Negative (Negative) Laboratory Tests Test 04/20/21 14:10 SARS-CoV-2 RNA (TAMIE) Negative (Negative) Medications Current Medications Hydromorphone HCl (Dilaudid) 0.5 mg PRN Q30MIN PRN IV SEVERE PAIN 7-10 Last administered on 04/16/21at 21:19; Start 04/16/21 at 16:00; Stop 04/16/21 at 21:19; Status DC Sodium Chloride 1,000 ml @ 1,000 mls/hr 1X ONCE IV Last administered on 04/16/21at 16:19; Start 04/16/21 at 16:15; Stop 04/16/21 at 17:14; Status DC Ondansetron HCl (Zofran) 4 mg 1X PRN IV NAUSEAS Last administered on 04/16/21at 16:17; Start 04/16/21 at 16:15; Stop 04/16/21 at 16:19; Status DC Morphine Sulfate (Morphine Sulfate) 2 mg PRN Q2HR PRN IV PAIN Last administered on 04/17/21at 09:17; Start 04/16/21 at 19:15; Stop 04/17/21 at 09:22; Status DC Lorazepam (Ativan Inj) 2 mg PRN Q4HRS PRN IVP ANXIETY / AGITATION; Start 04/16/21 at 19:45; Stop 04/18/21 at 11:08; Status DC Morphine Sulfate (Morphine Sulfate) 4 mg PRN Q3HRS PRN IV PAIN Last administered on 04/17/21at 00:52; Start 04/16/21 at 19:45; Stop 04/17/21 at 11:06; Status DC Ondansetron HCl (Zofran) 4 mg PRN Q6HRS PRN IVP NAUSEA/VOMITING Last administered on 04/17/21at 13:23; Start 04/16/21 at 19:45; Stop 04/17/21 at 16:17; Status DC Al Hydroxide/Mg Hydroxide (Mylanta Plus Xs) 30 ml PRN Q3HRS PRN PO HEARTBURN / GAS; Start 04/16/21 at 19:45 Calcium Carbonate/ Glycine (Tums) 500 mg PRN Q3HRS PRN PO UPSET STOMACH; Start 04/16/21 at 19:45 Zolpidem Tartrate (Ambien) 5 mg PRN QHS PRN PO INSOMNIA, MAY REPEAT IN 1HR; Start 04/16/21 at 19:45 Acetaminophen/ Hydrocodone Bitart (Lortab 5/325) 1 tab PRN Q4HRS PRN PO MILD PAIN 1-3; Start 04/16/21 at 19:45 Acetaminophen/ Hydrocodone Bitart (Lortab 5/325) 2 tab PRN Q4HRS PRN PO MODERATE PAIN, SEVERE PAIN; Start 04/16/21 at 19:45 Oxycodone/ Acetaminophen (Percocet 5/325) 1 tab PRN Q4HRS PRN PO MILD PAIN, 2ND CHOICE Last administered on 04/21/21at 03:35; Start 04/16/21 at 19:45 Oxycodone/ Acetaminophen (Percocet 5/325) 2 tab PRN Q4HRS PRN PO MOD-SEVERE PAIN, 2ND CHOICE Last administered on 04/20/21at 10:49; Start 04/16/21 at 19:45 Acetaminophen (Tylenol) 650 mg PRN Q6HRS PRN PO Headaches, Temp > 101.5F; Start 04/16/21 at 19:45 Magnesium Hydroxide (Milk Of Magnesia) 2,400 mg PRN Q12HR PRN PO CONSTIPATION; Start 04/16/21 at 19:45 Heparin Sodium (Porcine) (Heparin Sodium) 5,000 unit Q8HRS SQ Last administered on 04/19/21at 04:57; Start 04/16/21 at 22:00; Stop 04/19/21 at 10:57; Status DC Albuterol Sulfate (Ventolin Neb Soln) 2.5 mg PRN Q4HRS PRN INH wheezing; Start 04/17/21 at 09:30 Aspirin (Aspirin Chewable) 81 mg DAILY PO Last administered on 04/20/21at 10:44; Start 04/17/21 at 10:00 Vitamin D (Vitamin D3) 1,000 unit DAILY PO Last administered on 04/20/21at 10:43 ; Start 04/17/21 at 10:00 Levothyroxine Sodium (Synthroid) 150 mcg DAILY06 PO Last administered on 04/21/21at 06:16; Start 04/17/21 at 10:30 Triamcinolone Acetonide (Kenalog 0.1%) 1 cedrick DAILY TP ; Start 04/17/21 at 10:00 Carbamazepine (TEGretol XR) 200 mg DAILY PO Last administered on 04/20/21at 10:43; Start 04/17/21 at 11:00 Duloxetine HCl (Cymbalta) 60 mg DAILY PO Last administered on 04/20/21at 10:44; Start 04/17/21 at 10:00 Gabapentin (Neurontin) 300 mg BID PO Last administered on 04/20/21at 20:47; Sta rt 04/17/21 at 10:00 Pantoprazole Sodium (Protonix) 40 mg DAILYAC PO Last administered on 04/21/21at 06:16; Start 04/17/21 at 11:30 Morphine Sulfate (Morphine Sulfate) 4 mg PRN Q3HRS PRN IV PAIN; Start 04/17/21 at 11:15; Stop 04/17/21 at 12:58; Status DC Hydromorphone HCl (Dilaudid) 0.5 mg PRN Q3HRS PRN IVP PAIN Last administered on 04/17/21at 13:23; Start 04/17/21 at 13:00; Stop 04/18/21 at 11:08; Status DC Potassium Chloride/Dextrose/ Sod Cl 1,000 ml @ 75 mls/hr [id number] ONCE IV Last administered on 04/17/21at 13:29; Start 04/17/21 at 14:00; Stop 04/18/21 at 03:19; Status DC Ondansetron HCl (Zofran) 4 mg PRN Q4HRS PRN IVP NAUSEA/VOMITING Last administered on 04/17/21at 17:44; Start 04/17/21 at 16:15 Ketorolac Tromethamine (Toradol 30mg Vial) 30 mg PRN Q6HRS PRN IVP INFLAMMATION Last administered on 04/19/21at 12:41; Start 04/18/21 at 11:15 Info (Hold Preop Anti-Coag Meds) 1 ea CONT PRN PRN MC SEE COMMENTS; Start 04/19/21 at 14:00 Active Scripts Active Reported Imodium A-D (Loperamide HCl) 2 Mg Capsule 2 Mg PO PRN PRN Ventolin Hfa Inhaler (Albuterol Sulfate) 18 Gm Hfa.aer.ad 90 Mcg INH PRN PRN Proair Hfa (Albuterol Sulfate) 8.5 Gm Hfa.aer.ad 2 Puff IH PRN Q4-6HRS PRN 21 Days Triamcinolone Acetonide 0.1% Cream (Triamcinolone Acetonide) 15 Gm Cream..g. 1 Cedrick TP PRN Omeprazole 20 Mg Capsule.dr 1 Cap PO DAILY Cymbalta (Duloxetine Hcl) 60 Mg Capsule.dr 1 Cap PO DAILY Meloxicam 15 Mg Tablet 1 Tab PO DAILY 30 Days Gabapentin 600 Mg Tablet 300 Mg PO BID Carbamazepine 100 Mg Cpmp.12hr 200 Mg PO DAILY Levothyroxine Sodium 150 Mcg Tablet 1 Tab PO DAILY Vitamin D3 (Vitamin D) 25 Mcg Tablet 75 Mcg PO DAILY 1,000 UNITS = 25 MCG Aspirin 81 Mg Tab.chew 1 Tab PO DAILY Hydrocodone-Apap 10-325 (Hydrocodone Bit/Acetaminophen) 1 Tab Tablet 1 Tab PO QID PRN Vitals/I & O Vital Sign - Last 24 Hours 04/20/21 04/20/21 04/20/21 04/20/21 11:00 15:00 19:00 20:15 Temp 98.7 98.1 98.9 98.7 98.1 98.9 Pulse 74 70 77 Resp 18 18 18 B/P (MAP) 144/71 (95) 120/68 (85) 133/62 (85) Pulse Ox 94 92 97 O2 Delivery Room Air Room Air Room Air Room Air 04/20/21 04/20/21 04/20/21 04/21/21 20:50 21:20 23:00 03:00 Temp 98.0 97.9 98.0 97.9 Pulse 72 67 Resp 20 18 18 B/P (MAP) 131/63 (85) 117/69 (85) Pulse Ox 97 97 95 94 O2 Delivery Room Air Room Air Room Air Room Air 04/21/21 04/21/21 03:35 04:28 Resp 18 Pulse Ox 94 O2 Delivery Room Air Room Air Intake and Output 04/20/21 04/20/21 04/21/21 15:00 23:00 07:00 Intake Total 200 ml 100 ml Output Total 1300 ml Balance 200 ml -1200 ml Justifications for Admission Other Justification Nutrition Consultation Dietary Evaluation: Recommendations by RD: Dietary education by RD Comments: REC advance to regular diet when able Expected Outcomes/Goals: to meet >75% est nutr needs Interpretation of weight loss: >10% in 6 months Malnutrition Findings: Body Fat Depletion (Non Severe: Mod to Severe Weight Status: Underweight LAYLA CERVANTES MD Apr 21, 2021 08:39
[2021-04-21 11:00] VITALS: BP 112/64
--- NOTE | 2021-04-21 11:57 | NUR ---
SW following. Discussed with RN, pt from home with , room air, regular diet. Pt accepted at [facility], can transfer tomorrow (04/22/21). COVID-19 negative. RN notified. SW will continue to follow.
[2021-04-21] MEDS: HYDROcodone/APAP 5/325MG 1 TAB TABLET PO PRN (12:46)
[2021-04-21] MEDS ORDERED: HYDR-2769 PO (12:52)
--- NOTE | 2021-04-21 12:54 | SNU/HH DC ---
DISCHARGE ORDERS DISCHARGE INFORMATION: DISCHARGE DATE: Apr 21, 2021 FINAL DIAGNOSIS Problems Medical Problems: (1) Pubic ramus fracture Status: Acute (2) Sacral fracture, closed Status: Acute CONDITION ON DISCHARGE: Stable CODE STATUS: Code Status: Full PENITENTIARY: SNF STAY <30 DAYS: Yes POST DISCHARGE ORDERS: ACTIVITY ORDERS: Activity as tolerated WEIGHT BEARING STATUS: As tolerated DIET AFTER DISCHARGE: Cardiac FOLLOW-UP: PHYSICIAN FOLLOW-UP: PCP within 2 weeks of discharge ADDITIONAL FOLLOW-UP: Orthopedic surgery as needed LAB ORDERS FOR FOLLOW-UP: CBC, CMP TREATMENT/EQUIPMENT ORDERS: Physical Therapy For: Evalulation/Treatment Occupational Therapy For: Evaluation/Treatment DISCHARGE MEDICATIONS: Home Meds Active Scripts Hydrocodone Bit/Acetaminophen (HYDROCODONE-APAP 10-325 ) 1 Tab Tablet, 1 TAB PO Q6HRS PRN for PAIN for 5 Days, #20 TAB 0 Refills Prov:GEE STEINBERG MD 04/21/21 Reported Medications Loperamide HCl (Imodium A-D) 2 Mg Capsule, 2 MG PO PRN PRN for DIARRHEA, CAP 04/17/21 Albuterol Sulfate (VENTOLIN HFA INHALER) 18 Gm Hfa.aer.ad, 90 MCG INH PRN PRN for asthma, EACH 0 Refills 04/17/21 Albuterol Sulfate (Proair Hfa) 8.5 Gm Hfa.aer.ad, 2 PUFF IH PRN Q4-6HRS PRN for wheezing for 21 Days, #1 INHALER 0 Refills 04/17/21 Triamcinolone Acetonide (TRIAMCINOLONE ACETONIDE 0.1% CREAM) 15 Gm Cream..g., 1 JOSEFA TP PRN for lupus , EACH 04/17/21 Omeprazole (OMEPRAZOLE) 20 Mg Capsule.dr, 1 CAP PO DAILY for heartburn, #30 CAP 5 Refills 04/17/21 Duloxetine Hcl (CYMBALTA) 60 Mg Capsule.dr, 1 CAP PO DAILY for depression, #90 CAP 3 Refills 04/17/21 Meloxicam (MELOXICAM) 15 Mg Tablet, 1 TAB PO DAILY for pain for 30 Days, #30 TAB 0 Refills 04/17/21 Gabapentin (GABAPENTIN) 600 Mg Tablet, 300 MG PO BID for NEUROGENIC PAIN, TAB 04/17/21 Carbamazepine (CARBAMAZEPINE) 100 Mg Cpmp.12hr, 200 MG PO DAILY for trigeminal neuralgia, CAP 04/17/21 Levothyroxine Sodium (LEVOTHYROXINE SODIUM) 150 Mcg Tablet, 1 TAB PO DAILY for thyroid disease , #30 TAB 5 Refills 04/17/21 Cholecalciferol (Vitamin D3) (Vitamin D3 ) 25 Mcg Tablet, 75 MCG PO DAILY for SUPPLEMENT, TAB 1,000 UNITS = 25 MCG 04/17/21 Aspirin (ASPIRIN) 81 Mg Tab.chew, 1 TAB PO DAILY for preventative , #30 TAB 3 Refills 04/17/21 GEE STEINBERG MD Apr 21, 2021 12:54
[2021-04-21 15:00] VITALS: BP 131/67
[2021-04-21 19:15] VITALS: BP 108/64
[2021-04-22] MEDS: LEVOTHYROXINE 150 MCG TABLET PO SCH (05:59)
[2021-04-22] MEDS: PANTOPRAZOLE 40 MG TABLET.DR. PO SCH (05:59)
[2021-04-22 07:00] VITALS: BP 131/66
--- NOTE | 2021-04-22 08:52 | PDOC ---
PROGRESS NOTES Date of Service DATE: 04/22/21 TIME: 08:50 Subjective Subjective She admits pain is less in her left groin and hip area. Objective Objective Vital Signs Date Time Temp Pulse Resp B/P (MAP) Pulse Ox O2 Delivery O2 Flow Rate FiO2 04/22/21 07:00 97.8 64 16 131/66 (87) 95 Room Air 97.8 Intake and Output 04/22/21 07:00 Intake Total 1000 ml Balance 1000 ml Intake Oral 1000 ml # Voids 1 Physical Exam Physical Exam She is alert,sitting in bedside recliner and she continues to require physical assistance for bed mobility and transfers and she did walk for 85' yesterday with physical therapy. Assessment Assessment Problems Medical Problems: (1) Pubic ramus fracture Status: Acute (2) Sacral fracture, closed Status: Acute Plan Plan of Care To SNF when medically stable. Comment Review of Relevant I have reviewed the following items yuridia (where applicable) has been applied. Labs Laboratory Tests Test 04/20/21 14:10 SARS-CoV-2 RNA (TAMIE) Negative (Negative) Medications Current Medications Hydromorphone HCl (Dilaudid) 0.5 mg PRN Q30MIN PRN IV SEVERE PAIN 7-10 Last administered on 04/16/21at 21:19; Start 04/16/21 at 16:00; Stop 04/16/21 at 21: 19; Status DC Sodium Chloride 1,000 ml @ 1,000 mls/hr 1X ONCE IV Last administered on 04/16/21at 16:19; Start 04/16/21 at 16:15; Stop 04/16/21 at 17:14; Status DC Ondansetron HCl (Zofran) 4 mg 1X PRN IV NAUSEAS Last administered on 04/16/21at 16:17; Start 04/16/21 at 16:15; Stop 04/16/21 at 16:19; Status DC Morphine Sulfate (Morphine Sulfate) 2 mg PRN Q2HR PRN IV PAIN Last administered on 04/17/21at 09:17; Start 04/16/21 at 19:15; Stop 04/17/21 at 09:22; Status DC Lorazepam (Ativan Inj) 2 mg PRN Q4HRS PRN IVP ANXIETY / AGITATION; Start 04/16/21 at 19:45; Stop 04/18/21 at 11:08; Status DC Morphine Sulfate (Morphine Sulfate) 4 mg PRN Q3HRS PRN IV PAIN Last administered on 04/17/21at 00:52; Start 04/16/21 at 19:45; Stop 04/17/21 at 11:06; Status DC Ondansetron HCl (Zofran) 4 mg PRN Q6HRS PRN IVP NAUSEA/VOMITING Last administered on 04/17/21at 13:23; Start 04/16/21 at 19:45; Stop 04/17/21 at 16:17; Status DC Al Hydroxide/Mg Hydroxide (Mylanta Plus Xs) 30 ml PRN Q3HRS PRN PO HEARTBURN / GAS; Start 04/16/21 at 19:45 Calcium Carbonate/ Glycine (Tums) 500 mg PRN Q3HRS PRN PO UPSET STOMACH; Start 04/16/21 at 19:45 Zolpidem Tartrate (Ambien) 5 mg PRN QHS PRN PO INSOMNIA, MAY REPEAT IN 1HR; Start 04/16/21 at 19:45 Acetaminophen/ Hydrocodone Bitart (Lortab 5/325) 1 tab PRN Q4HRS PRN PO MILD PAIN 1-3 Last administered on 04/21/21at 12:46; Start 04/16/21 at 19:45 Acetaminophen/ Hydrocodone Bitart (Lortab 5/325) 2 tab PRN Q4HRS PRN PO MODERATE PAIN, SEVERE PAIN; Start 04/16/21 at 19:45 Oxycodone/ Acetaminophen (Percocet 5/325) 1 tab PRN Q4HRS PRN PO MILD PAIN, 2ND CHOICE Last administered on 04/21/21at 23:22; Start 04/16/21 at 19:45 Oxycodone/ Acetaminophen (Percocet 5/325) 2 tab PRN Q4HRS PRN PO MOD-SEVERE PAIN, 2ND CHOICE Last administered on 04/20/21at 10:49; Start 04/16/21 at 19:45 Acetaminophen (Tylenol) 650 mg PRN Q6HRS PRN PO Headaches, Temp > 101.5F; Start 04/16/21 at 19:45 Magnesium Hydroxide (Milk Of Magnesia) 2,400 mg PRN Q12HR PRN PO CONSTIPATION; Start 04/16/21 at 19:45 Heparin Sodium (Porcine) (Heparin Sodium) 5,000 unit Q8HRS SQ Last administered on 04/19/21 04:57; Start 04/16/21 at 22:00; Stop 04/19/21 at 10:57; Status DC Albuterol Sulfate (Ventolin Neb Soln) 2.5 mg PRN Q4HRS PRN INH wheezing; Start 04/17/21 at 09:30 Aspirin (Aspirin Chewable) 81 mg DAILY PO Last administered on 04/21/21 08:32; Start 04/17/21 at 10:00 Vitamin D (Vitamin D3) 1,000 unit DAILY PO Last administered on 04/21/21 08:32; Start 04/17/21 at 10:00 Levothyroxine Sodium (Synthroid) 150 mcg DAILY06 PO Last administered on 04/22/21 05:59; Start 04/17/21 at 10:30 Triamcinolone Acetonide (Kenalog 0.1%) 1 cedrick DAILY TP Last administered on 04/21/21 08:36; Start 04/17/21 at 10:00 Carbamazepine (TEGretol XR) 200 mg DAILY PO Last administered on 04/21/21 08:32; Start 04/17/21 at 11:00 Duloxetine HCl (Cymbalta) 60 mg DAILY PO Last administered on 04/21/21 08:32; Start 04/17/21 at 10:00 Gabapentin (Neurontin) 300 mg BID PO Last administered on 04/21/21at 21:00; Start 04/17/21 at 10:00 Pantoprazole Sodium (Protonix) 40 mg DAILYAC PO Last administered on 04/22/21 05:59; Start 04/17/21 at 11:30 Morphine Sulfate (Morphine Sulfate) 4 mg PRN Q3HRS PRN IV PAIN; Start 04/17/21 at 11:15; Stop 04/17/21 at 12:58; Status DC Hydromorphone HCl (Dilaudid) 0.5 mg PRN Q3HRS PRN IVP PAIN Last administered on 04/17/21 13:23; Start 04/17/21 at 13:00; Stop 04/18/21 at 11:08; Status DC Potassium Chloride/Dextrose/ Sod Cl 1,000 ml @ 75 mls/hr [id number] ONCE IV Last administered on 7/23/21at 13:29; Start 04/17/21 at 14:00; Stop 04/18/21 at 03: 19; Status DC Ondansetron HCl (Zofran) 4 mg PRN Q4HRS PRN IVP NAUSEA/VOMITING Last administered on 04/17/21at 17:44; Start 04/17/21 at 16:15 Ketorolac Tromethamine (Toradol 30mg Vial) 30 mg PRN Q6HRS PRN IVP INFLAMMATION Last administered on 04/19/21at 12:41; Start 04/18/21 at 11:15 Info (Hold Preop Anti-Coag Meds) 1 ea CONT PRN PRN MC SEE COMMENTS; Start 04/19/21 at 14:00 Active Scripts Active Hydrocodone-Apap 10-325 (Hydrocodone Bit/Acetaminophen) 1 Tab Tablet 1 Tab PO Q6HRS PRN 5 Days Reported Imodium A-D (Loperamide HCl) 2 Mg Capsule 2 Mg PO PRN PRN Ventolin Hfa Inhaler (Albuterol Sulfate) 18 Gm Hfa.aer.ad 90 Mcg INH PRN PRN Proair Hfa (Albuterol Sulfate) 8.5 Gm Hfa.aer.ad 2 Puff IH PRN Q4-6HRS PRN 21 Days Triamcinolone Acetonide 0.1% Cream (Triamcinolone Acetonide) 15 Gm Cream..g. 1 Cedrick TP PRN Omeprazole 20 Mg Capsule.dr 1 Cap PO DAILY Cymbalta (Duloxetine Hcl) 60 Mg Capsule.dr 1 Cap PO DAILY Meloxicam 15 Mg Tablet 1 Tab PO DAILY 30 Days Gabapentin 600 Mg Tablet 300 Mg PO BID Carbamazepine 100 Mg Cpmp.12hr 200 Mg PO DAILY Levothyroxine Sodium 150 Mcg Tablet 1 Tab PO DAILY Vitamin D3 (Vitamin D) 25 Mcg Tablet 75 Mcg PO DAILY 1,000 UNITS = 25 MCG Aspirin 81 Mg Tab.chew 1 Tab PO DAILY Vitals/I & O Vital Sign - Last 24 Hours 04/21/21 04/21/21 04/21/21 04/21/21 09:00 11:00 12:46 13:15 Temp 98.2 98.2 Pulse 71 Resp 16 B/P (MAP) 112/64 (80) Pulse Ox 96 O2 Delivery Room Air Room Air Room Air Room Air 04/21/21 04/21/21 04/21/21 04/21/21 15:00 17:49 18:20 19:15 Temp 98.2 98.2 98.2 98.2 Pulse 76 71 Resp 16 16 B/P (MAP) 131/67 (88) 108/64 (79) Pulse Ox 95 95 O2 Delivery Room Air Room Air Room Air Room Air 04/21/21 04/21/21 04/21/21 04/22/21 19:56 23:22 23:52 07:00 Temp 97.8 97.8 Pulse 64 Resp 18 16 B/P (MAP) 131/66 (87) Pulse Ox 95 95 O2 Delivery Room Air Room Air Room Air Room Air Intake and Output 04/21/21 04/21/21 04/22/21 15:00 23:00 07:00 Intake Total 580 ml 420 ml Balance 580 ml 420 ml Justifications for Admission Other Justification Nutrition Consultation Dietary Evaluation: Recommendations by RD: Dietary education by RD Comments: REC advance to regular diet when able Expected Outcomes/Goals: to meet >75% est nutr needs Interpretation of weight loss: >10% in 6 months Malnutrition Findings: Body Fat Depletion (Non Severe: Mod to Severe Weight Status: Underweight LAYAL CERVANTES MD Apr 22, 2021 08:52
[2021-04-22] MEDS: TRIAMCINOLONE ACETONIDE 0.1% TOPICAL CREAM 15GM TUBE. TP SCH (09:00)
[2021-04-22] MEDS: DULoxetine HCL 30 MG CAPSULE.DR PO SCH (09:22)
[2021-04-22] MEDS: ASPIRIN CHEWABLE 81 MG TABLET. PO SCH (09:22)
[2021-04-22] MEDS: CHOLECALCIFEROL (VITAMIN D3) 1,000 UNIT TABLET PO SCH (09:22)
[2021-04-22] MEDS: GABAPENTIN 300 MG CAPSULE. PO SCH (09:22)
[2021-04-22] MEDS: KETOROLAC 30 MG/ML VIAL. IVP PRN (09:23)
[2021-04-22] MEDS: HYDROcodone/APAP 5/325MG 1 TAB TABLET PO PRN (09:31)
--- NOTE | 2021-04-22 10:19 | NUR ---
BILL following. Discussed with RN, discharge order for pt to go to [facility] today. Discharge orders faxed, awaiting escript to dagoberto Centeno. Pt still agreeable to plan. Medicare letter completed. BILL left voicemail for [facility] transport. BILL will continue to follow. Addendum: 04/22/21 at 1140 by [address]AN [facility] scheduled the transport with [facility] transport for 1130.
[2021-04-22] MEDS ORDERED: HYDR-2767 PO (10:40)
--- NOTE | 2021-04-22 12:13 | NUR ---
Hospital transportation picked pt up at 1145 to take to [facility]. Belongings were sent with her, report was called to Cora TYLER.
--- NOTE | 2021-04-23 21:14 | PDOC3 ---
[facility]-Discharge Summary Date of Admission: Date of Admission: Apr 16, 2021 Date of Discharge: Date of Discharge: Apr 22, 2021 Discharge Diagnosis: Discharge Diagnosis: Minimally displaced left superior and inferior pubic rami fracture Nondisplaced transverse fracture of the left sacral wing Dehydration Normocytic anemia Lupus History of blood clots Trigeminal neuralgia Hypothyroidism Severe protein malnutrition Hospital Course: Hospital Course: 65-year-old female with past medical history of lupus, trigeminal neuralgia, hypothyroidism, cervical cancer, osteoporosis, history of blood clots, anxiety/depression, who presents to the ED with complaints of left hip pain after a fall. States she was sitting and when she went to stand she collapsed on the front porch. States she landed on her bottom and did hit her head, but denies LOC. She reports pain 10/10 at that time, with some associated numbness. States that this is the third time this week that she has had this type of numbness and weakness in her lower extremities, which is new and concerning for her. She denies any associated chest pain, nausea, or shortness of breath. Labs on admission showed hemoglobin 11.7, hematocrit 35.2, BUN 13, creatinine 0.6, albumin 2.6, with BUN/creatinine ratio 22. CT o abdomen/pelvis shows a nondisplaced left sacral wing fracture with superior and inferior pubic rami fractures. Admitted patient for further medical management. 04/17: She is having pain and headache with morphine. Notes that Dilaudid helped her pain. She is asking for diet. No fever or shortness of breath or chest pain. She does note history of 2 prior pulmonary emboli but notes that she had a negative prothrombotic work-up at the [facility] previously and is not on long-term anticoagulation. 04/18: Willett placed for comfort. Has significant nausea with Dilaudid and morphine. Tolerating p.o. oxycodone well. Advised Toradol for pain prior to therapy today. Her goal is to go home. No chest pain or shortness of breath. No bowel movement this yet. Able to have a bowel movement on bedpan. Significant pain with bleeding when she rolled onto her right hip earlier this morning. Otherwise afebrile no shortness of breath no chest pain. She has been offered consideration of sacroplasty by PMR 04/20/2021 No acute events overnight. Afebrile. Patient is emotionally labile at the moment on the recliner. Complaining of overall pain. We will continue with PT, OT modalities. Patient's chart, labs, images were reviewed and discussed with RN Pt able to participate with PT/OT within controlled pain by time of discharge. Will hold off any procedures until patient is seen as outpatient. By day of discharge, pt was clinically stable and ready for discharge. Rest of hospital course was uneventful Disposition: Disposition/Orders: D/C to Another Facility Activity: Activity: Resume previous activity Diet: Diet: Regular Medications: Home Meds Active Scripts Hydrocodone/Acetaminophen (Hydrocodone-Acetamin 10-325 mg) 1 Each Tablet, 1 EACH PO Q6-8HRS PRN for PAIN for 5 Days, #20 TAB Prov:GEE STEINBERG MD 04/22/21 Hydrocodone Bit/Acetaminophen (HYDROCODONE-APAP 10-325 ) 1 Tab Tablet, 1 TAB PO Q6HRS PRN for PAIN for 5 Days, #20 TAB 0 Refills Prov:GEE STEINBERG MD 04/21/21 Reported Medications Loperamide HCl (Imodium A-D) 2 Mg Capsule, 2 MG PO PRN PRN for DIARRHEA, CAP 04/17/21 Albuterol Sulfate (VENTOLIN HFA INHALER) 18 Gm Hfa.aer.ad, 90 MCG INH PRN PRN for asthma, EACH 0 Refills 04/17/21 Albuterol Sulfate (Proair Hfa) 8.5 Gm Hfa.aer.ad, 2 PUFF IH PRN Q4-6HRS PRN for wheezing for 21 Days, #1 INHALER 0 Refills 04/17/21 Triamcinolone Acetonide (TRIAMCINOLONE ACETONIDE 0.1% CREAM) 15 Gm Cream..g., 1 JOSEFA TP PRN for lupus , EACH 04/17/21 Omeprazole (OMEPRAZOLE) 20 Mg Capsule.dr, 1 CAP PO DAILY for heartburn, #30 CAP 5 Refills 04/17/21 Duloxetine Hcl (CYMBALTA) 60 Mg Capsule.dr, 1 CAP PO DAILY for depression, #90 CAP 3 Refills 04/17/21 Meloxicam (MELOXICAM) 15 Mg Tablet, 1 TAB PO DAILY for pain for 30 Days, #30 TAB 0 Refills 04/17/21 Gabapentin (GABAPENTIN) 600 Mg Tablet, 300 MG PO BID for NEUROGENIC PAIN, TAB 04/17/21 Carbamazepine (CARBAMAZEPINE) 100 Mg Cpmp.12hr, 200 MG PO DAILY for trigeminal neuralgia, CAP 04/17/21 Levothyroxine Sodium (LEVOTHYROXINE SODIUM) 150 Mcg Tablet, 1 TAB PO DAILY for thyroid disease , #30 TAB 5 Refills 04/17/21 Cholecalciferol (Vitamin D3) (Vitamin D3 ) 25 Mcg Tablet, 75 MCG PO DAILY for SUPPLEMENT, TAB 1,000 UNITS = 25 MCG 04/17/21 Aspirin (ASPIRIN) 81 Mg Tab.chew, 1 TAB PO DAILY for preventative , #30 TAB 3 Refills 04/17/21 Scheduled Aspirin (Aspirin), 1 TAB PO DAILY, (Reported) Carbamazepine (Carbamazepine), 200 MG PO DAILY, (Reported) Cholecalciferol (Vitamin D3) (Vitamin D3 ), 75 MCG PO DAILY, (Reported) Duloxetine Hcl (Cymbalta), 1 CAP PO DAILY, (Reported) Gabapentin (Gabapentin), 300 MG PO BID, (Reported) Levothyroxine Sodium (Levothyroxine Sodium), 1 TAB PO DAILY, (Reported) Meloxicam (Meloxicam), 1 TAB PO DAILY, (Reported) Omeprazole (Omeprazole), 1 CAP PO DAILY, (Reported) Triamcinolone Acetonide (Triamcinolone Acetonide 0.1% Cream), 1 JOSEFA TP PRN, (Reported) Scheduled PRN Albuterol Sulfate (Proair Hfa), 2 PUFF IH PRN Q4-6HRS PRN for wheezing, (Reported) Albuterol Sulfate (Ventolin Hfa Inhaler), 90 MCG INH PRN PRN for asthma, (Reported) Hydrocodone Bit/Acetaminophen (Hydrocodone-Apap 10-325 ), 1 TAB PO Q6HRS PRN for PAIN Hydrocodone/Acetaminophen (Hydrocodone-Acetamin 10-325 mg), 1 EACH PO Q6-8HRS PRN for PAIN Loperamide HCl (Imodium A-D), 2 MG PO PRN PRN for DIARRHEA, (Reported) Total Time: Total Time: Total time spent was 35 minutes in preparing scripts, discharge planning with SW and RN, and preparing this discharge summary. Patient seen and examined on day of discharge. Justicifation of Admission Dx: Justifications for Admission: Justification of Admission Dx: Yes Fracture: Fracture GEE STEINBERG MD Apr 23, 2021 21:14
== END 2021-04-22 11:45 | DRG 551 ==
LOC: ER 15:16 → ED HOLD 18:21 → 4 NORTH 22:30
PROVIDERS: ADMIT Family Medicine; ATTEND Family Medicine
DX: S32.10XA Unspecified fracture of sacrum, initial encounter for closed fracture (principal); E43 Unspecified severe protein-calorie malnutrition; S32.512A Fracture of superior rim of left pubis, initial encounter for closed fracture; D64.9 Anemia, unspecified; E03.9 Hypothyroidism, unspecified; E78.5 Hyperlipidemia, unspecified; E86.0 Dehydration; G50.0 Trigeminal neuralgia; I10 Essential (primary) hypertension; J45.909 Unspecified asthma, uncomplicated; L93.0 Discoid lupus erythematosus; M81.0 Age-related osteoporosis without current pathological fracture; Z82.49 Family history of ischemic heart disease and other diseases of the circulatory system; Z85.41 Personal history of malignant neoplasm of cervix uteri; Z86.711 Personal history of pulmonary embolism; Z86.718 Personal history of other venous thrombosis and embolism; Z86.73 Personal history of transient ischemic attack (TIA), and cerebral infarction without residual deficits; Z87.891 Personal history of nicotine dependence; Z90.711 Acquired absence of uterus with remaining cervical stump; F32.9 Major depressive disorder, single episode, unspecified; F41.9 Anxiety disorder, unspecified; G89.29 Other chronic pain; W18.39XA Other fall on same level, initial encounter; Y93.89 Activity, other specified; Y92.89 Other specified places as the place of occurrence of the external cause; Y99.8 Other external cause status; G62.9 Polyneuropathy, unspecified; Z68.21 Body mass index [BMI] 21.0-21.9, adult; Z20.822 Contact with and (suspected) exposure to COVID-19
CPT/HCPCS: 36415; 70450; 72125; 72192; 73502; 80047; 80048; 80053; 82607; 85025; 85610; 86850; 86900; 86901; 96361; 96374; 96375; 96376; J1170; J1644; J1885; J2270; J2405; J3480; J7030; U0003; U0005; 97110-GP; 97116-GP; 97530-GO; 97530-GP; 97535-GO; 99285-25; G0378

== ENCOUNTER 2021-05-03 06:15 | Emergency (ER) | payer MEDICARE ==
[~2021-05-03] VITALS: Ht 157.5 cm; Wt 48.2 kg
[~2021-05-03 06:15] MED LIST: ALBU2.5V8 IH; ASPI-630 PO; CARB100C4 PO; CHOL10004 PO; DULO60CA6 PO; GABA600T7 PO; HYDR-2767 PO; HYDR-2769 PO; LEVO150T5 PO; LOPE-101 PO; MELO15TA23 PO; OMEP20CA16 PO; TRIA15CR3 TP; VENTOLIN HFA18 GM INH
[2021-05-03] MEDS ORDERED: IV NORMAL SALINE 1000ML BAG 1,000 ML IV SCH (07:00)
[2021-05-03 07:09] LABS: BASO % 1 % (0-3); EOS # 0.4 x10^3/uL (0.0-0.7); EOS % 5 % (0-3); HEMATOCRIT 32.6 % (36.0-47.0); HEMOGLOBIN 11.1 g/dL (12.0-15.5); LYMPH # 0.7 x10^3/uL (1.0-4.8); LYMPH % 8 % (24-48); MEAN CORPUSCULAR HEMOGLOBIN 32 pg (25-35); MEAN CORPUSCULAR HGB CONC 34 g/dL (31-37); MEAN CORPUSCULAR VOLUME 94 fL (79-100); MONO # 0.4 x10^3/uL (0.0-1.1); MONO % 4 % (0-9); NEUT % 82 % (31-73); PLATELET COUNT 374 x10^3/uL (140-400); RED BLOOD COUNT 3.47 x10^6/uL (3.50-5.40); RED CELL DISTRIBUTION WIDTH 12.7 % (11.5-14.5); WHITE BLOOD COUNT 8.5 x10^3/uL (4.0-11.0)
[2021-05-03 07:15] LABS: CALCIUM 8.9 mg/dL (8.5-10.1); CREATININE 0.9 mg/dL (0.6-1.0); GFR 62.6; POTASSIUM 4.3 mmol/L (3.5-5.1)
[2021-05-03 07:21] LABS: ALBUMIN 2.5 g/dL (3.4-5.0); ALBUMIN/GLOBULIN RATIO 0.8 (1.0-1.7); MAGNESIUM 1.7 mg/dL (1.8-2.4); TOTAL BILIRUBIN 0.1 mg/dL (0.2-1.0); TOTAL PROTEIN 5.7 g/dL (6.4-8.2)
[2021-05-03] MEDS ORDERED: MORPHINE SULFATE 4 MG/ML INJ. IVP ONE (07:30)
[2021-05-03 07:43] LABS: BILIRUBIN,URINE NEGATIVE (NEG); CLARITY,URINE CLEAR; COLOR,URINE YELLOW; NITRITE,URINE NEGATIVE (NEG); PROTEIN,URINE NEGATIVE (NEG-TRACE); UROBILINOGEN,URINE 0.2 mg/dL (0.2 mg/dL)
--- NOTE | 2021-05-03 07:55 | RAD ---
EXAM: XR LUMBAR SPINE 2-3V 05/03/2021 7:03 AM CLINICAL INDICATION: Low back pain COMPARISON: None TECHNIQUE: 3 views of the lumbar spine FINDINGS: 5 nonrib-bearing lumbar vertebral bodies. The bones are diffusely demineralized. There is leftward curvature of the upper lumbar spine. No definite acute fracture. There is moderate disc spac e narrowing at L2-L3 and mild disc space and the remaining levels. There are calcifications in the ao rta. IMPRESSION: 1. Osteopenia. No definite acute fracture. 2. Moderate degenerative disc disease at L2-L3 and mild at the remaining levels. Electronically signed by: Eun Yeboah MD (05/03/2021 7:53 AM) [id number]
[2021-05-03 07:59] LABS: BACTERIA,URINE 0 /HPF (0-FEW); WBC,URINE 0 /HPF (0-4)
[2021-05-03] MEDS ORDERED: CONTRAST GIVEN. MC PRN (08:00)
[2021-05-03] MEDS ORDERED: ONDANSETRON PF 4 MG/2 ML VIAL. IVP ONE (08:00)
[2021-05-03] MEDS ORDERED: MAGNESIUM SULFATE 2GM 50 ML IV ONE (08:00)
[2021-05-03] MEDS ORDERED: IOHEXOL 300 MG/ML 100ML VIAL. IV ONE (08:30)
--- NOTE | 2021-05-03 08:46 | RAD ---
CT abdomen pelvis with contrast dated 05/03/2021. No comparison available. Clinical data indication: Abdominal pain and nausea. TECHNIQUE: Contiguous axial imaging the abdomen pelvis performed following the intravenous administration of 75 cc Omnipaque 300. One or more of the following individualized dose reduction techniques were utilized for this examinat ion: 1. Automated exposure control 2. Adjustment of the mA and/or kV according to patient size 3. Use of iterative reconstruction technique FINDINGS: Limited images of lung bases are clear. Heart size within normal limits. No pleural or pericardial ef fusion. Liver is homogeneous. No apparent hepatic mass. No biliary ductal dilatation. There is scattered pneu mobilia with evidence of prior gallbladder resection and choledochojejunostomy. Mild dilation of the residual common duct and pancreatic duct. No peripancreatic inflammatory changes. Portal vein is mallory nt. Spleen is normal in size. Adrenal glands unremarkable. There is mild bilateral renal pelvocaliectasis . There are a few punctate calcific stones along the calyceal margins of each kidney. No apparent ure teral stone or hydronephrosis. GI tract is otherwise normal in caliber. No apparent wall thickening. The appendix is not clearly nemesio ntified. No inflammatory changes in the mesentery. No ascites or lymphadenopathy. Images of pelvis show nondistended urinary bladder. The uterus is surgically absent. No free fluid. N o pelvic lymphadenopathy. Bone windows show no acute findings. Multilevel spondylosis. IMPRESSION: 1. No acute abnormality of abdomen or pelvis. 2. Mild bilateral hydronephrosis with no apparent obstructing stone. There is bilateral nephrolithias is. 3. Status post cholecystectomy with small amount of pneumobilia. Electronically signed by: Chance Cook MD (05/03/2021 8:43 AM) [id number]
--- NOTE | 2021-05-03 08:56 | PHYS DOC ---
Past Medical History Additional Past Medical Histor: LUPUS, DVT, CERVICAL CX, TRIGIMINAL NERALGIA Past Surgical History: Other Additional Past Surgical Histo: "REROUTING BILE DUCT", BROKEN PELVIS, BROKEN TAILBONE Smoking Status: Former Smoker Alcohol Use: Occasionally Drug Use: None General Adult EDM: Chief Complaint: PELVIC PAIN HPI: HPI: Patient is a 65 year old female who presented to ER for evaluation of low back pain or abdominal pain. Patient fell and broke her superior and inferior pubic rami and sacrum on April 16. Patient was evaluated here, admitted to hospital for pain control. Patient with staying hospital here for a while, eventually was discharged from the hospital to [facility] for rehab. Patient was in rehab for a week, she is on pain medication. Patient was discharged from rehab 3 days ago. She continues to do physical therapy at home, she woke up this morning with severe low back pain and pelvic pain. Patient took her pain medication at home but still in pain so her brought her here for evaluation. Patient denies any nausea vomiting. Patient had some diarrhea earlier. Patient denies any cough or fever. Patient denies any bowel or bladder incontinence. Patient denies any reinjury. Review of Systems: Review of Systems: Constitutional: Denies fever or chills. [] Eyes: Denies change in visual acuity. [] HENT: Denies nasal congestion or sore throat. [] Respiratory: Denies cough or shortness of breath. [] Cardiovascular: Denies chest pain or edema. [] GI: Positive for abdominal pain, no nausea or vomiting, positive for diarrhea. : Denies dysuria. [] Musculoskeletal: Positive for low back pain. Integument: Denies rash. [] Neurologic: Denies headache, focal weakness or sensory changes. [] Endocrine: Denies polyuria or polydipsia. [] Lymphatic: Denies swollen glands. [] Psychiatric: Denies depression or anxiety. [] Heart Score: C/O Chest Pain: N/A Risk Factors: Risk Factors: DM, Current or recent (<one month) smoker, HTN, HLP, family history of CAD, obesity. Risk Scores: Score 0 - 3: 2.5% MACE over next 6 weeks - Discharge Home Score 4 - 6: 20.3% MACE over next 6 weeks - Admit for Clinical Observation Score 7 - 10: 72.7% MACE over next 6 weeks - Early Invasive Strategies Current Medications: Current Medications Medications (Trade) Dose Ordered Sig/Verónica Start Time Stop Time Status Last Admin Dose Admin Info (CONTRAST GIVEN -- Rx MONITORING) 1 each PRN DAILY PRN 05/03/21 08:00 05/05/21 07:59 Iohexol (Omnipaque 300 Mg/ml) 75 ml 1X ONCE 05/03/21 08:30 05/03/21 08:31 DC Magnesium Sulfate 50 ml @ 25 mls/hr 1X ONCE 05/03/21 08:00 05/03/21 09:59 05/03/21 08:31 25 MLS/HR Morphine Sulfate (Morphine Sulfate) 4 mg 1X ONCE 05/03/21 07:30 05/03/21 07:31 DC 05/03/21 07:13 4 MG Ondansetron HCl (Zofran) 4 mg 1X ONCE 05/03/21 08:00 05/03/21 08:01 DC 05/03/21 08:28 4 MG Sodium Chloride 1,000 ml @ 1,000 mls/hr Q1H 05/03/21 07:00 05/03/21 07:59 DC 05/03/21 07:00 1,000 MLS/HR Allergies: Allergies: Allergies Coded Allergies Type Severity Reaction Last Updated Verified amoxicillin Allergy Intermediate rash 04/16/21 Yes Physical Exam: PE: Constitutional: Well developed, well nourished, in mild acute distress due to pain, non-toxic appearance. [] HENT: Normocephalic, atraumatic, bilateral external ears normal, oropharynx moist, no oral exudates, nose normal. [] Eyes: PERRLA, EOMI, conjunctiva normal, no discharge. [] Neck: Normal range of motion, no tenderness, supple, no stridor. [] Cardiovascular:Heart rate regular rhythm, no murmur [] Lungs & Thorax: Bilateral breath sounds clear to auscultation [] Abdomen: Bowel sounds normal, soft, there is tenderness to palpation in suprapubic area, no masses, no pulsatile masses. [] Skin: Warm, dry, no erythema, no rash. [] Back: No CVA tenderness to palpation, there is tender to palpation at low back area and pelvic area,] Extremities: No tenderness, no cyanosis, no clubbing, ROM intact, no edema. [] Neurologic: Alert and oriented X 3, normal motor function, normal sensory function, no focal deficits noted. [] Psychologic: Affect normal, judgement normal, mood normal. [] Current Patient Data: Labs: Laboratory Tests Test 05/03/21 07:00 05/03/21 07:34 White Blood Count 8.5 x10^3/uL (4.0-11.0) Red Blood Count 3.47 x10^6/uL (3.50-5.40) L Hemoglobin 11.1 g/dL (12.0-15.5) L Hematocrit 32.6 % (36.0-47.0) L Mean Corpuscular Volume 94 fL (79-100) Mean Corpuscular Hemoglobin 32 pg (25-35) Mean Corpuscular Hemoglobin Concent 34 g/dL (31-37) Red Cell Distribution Width 12.7 % (11.5-14.5) Platelet Count 374 x10^3/uL (140-400) Neutrophils (%) (Auto) 82 % (31-73) H Lymphocytes (%) (Auto) 8 % (24-48) L Monocytes (%) (Auto) 4 % (0-9) Eosinophils (%) (Auto) 5 % (0-3) H Basophils (%) (Auto) 1 % (0-3) Neutrophils # (Auto) 7.0 x10^3/uL (1.8-7.7) Lymphocytes # (Auto) 0.7 x10^3/uL (1.0-4.8) L Monocytes # (Auto) 0.4 x10^3/uL (0.0-1.1) Eosinophils # (Auto) 0.4 x10^3/uL (0.0-0.7) Basophils # (Auto) 0.0 x10^3/uL (0.0-0.2) Sodium Level 138 mmol/L (136-145) Potassium Level 4.3 mmol/L (3.5-5.1) Chloride Level 102 mmol/L (98-107) Carbon Dioxide Level 32 mmol/L (21-32) Anion Gap 4 (6-14) L Blood Urea Nitrogen 18 mg/dL (7-20) Creatinine 0.9 mg/dL (0.6-1.0) Estimated GFR (Cockcroft-Gault) 62.6 BUN/Creatinine Ratio 20 (6-20) Glucose Level 114 mg/dL (70-99) H Calcium Level 8.9 mg/dL (8.5-10.1) Magnesium Level 1.7 mg/dL (1.8-2.4) L Total Bilirubin 0.1 mg/dL (0.2-1.0) L Aspartate Amino Transferase (AST) 26 U/L (15-37) Alanine Aminotransferase (ALT) 35 U/L (14-59) Alkaline Phosphatase 209 U/L (46-116) H Total Protein 5.7 g/dL (6.4-8.2) L Albumin 2.5 g/dL (3.4-5.0) L Albumin/Globulin Ratio 0.8 (1.0-1.7) L Lipase 927 U/L (73-393) H Urine Collection Type Unknown Urine Color Yellow Urine Clarity Clear Urine pH 7.0 (<5.0-8.0) Urine Specific [place] 1.010 (1.000-1.030) Urine Protein Negative mg/dL (NEG-TRACE) Urine Glucose (UA) Negative mg/dL (NEG) Urine Ketones (Stick) Negative mg/dL (NEG) Urine Blood Moderate (NEG) Urine Nitrite Negative (NEG) Urine Bilirubin Negative (NEG) Urine Urobilinogen Dipstick 0.2 mg/dL (0.2 mg/dL) Urine Leukocyte Esterase Negative (NEG) Urine RBC 11-20 /HPF (0-2) Urine WBC 0 /HPF (0-4) Urine Squamous Epithelial Cells Occ /LPF Urine Bacteria 0 /HPF (0-FEW) Urine Mucus Slight /LPF Laboratory Tests 05/03/21 07:00 Laboratory Tests 05/03/21 07:00 Vital Signs: Vital Signs Date Time Temp Pulse Resp B/P (MAP) Pulse Ox O2 Delivery O2 Flow Rate FiO2 05/03/21 08:35 78 160/77 (104) 97 05/03/21 07:13 18 Room Air 05/03/21 06:20 98.6 98.6 EKG: EKG: [] Radiology/Procedures: Radiology/Procedures: [][facility] [address] [place] [address] IMAGING REPORT Signed PATIENT: MARGARET WALTERS ACCOUNT: [id number] : 1955 LOCATION: ER AGE: 65 SEX: F EXAM STATUS: REG ER ORD. PHYSICIAN: CHARLES MILLER DO REASON: ABDOMINAL PAIN, NAUSEA PROCEDURE: CT ABD PELV W/ IV CONTRST ONLY CT abdomen pelvis with contrast dated 05/03/2021. No comparison available. Clinical data indication: Abdominal pain and nausea. TECHNIQUE: Contiguous axial imaging the abdomen pelvis performed following the intravenous administration of 75 cc Omnipaque 300. One or more of the following individualized dose reduction techniques were utilized for this examination: 1. Automated exposure control 2. Adjustment of the mA and/or kV according to patient size 3. Use of iterative reconstruction technique FINDINGS: Limited images of lung bases are clear. Heart size within normal limits. No pleural or pericardial effusion. Liver is homogeneous. No apparent hepatic mass. No biliary ductal dilatation. There is scattered pneumobilia with evidence of prior gallbladder resection and choledochojejunostomy. Mild dilation of the residual common duct and pancreatic duct. No peripancreatic inflammatory changes. Portal vein is patent. Spleen is normal in size. Adrenal glands unremarkable. There is mild bilateral renal pelvocaliectasis. There are a few punctate calcific stones along the calyceal margins of each kidney. No apparent ureteral stone or hydronephrosis. GI tract is otherwise normal in caliber. No apparent wall thickening. The appendix is not clearly identified. No inflammatory changes in the mesentery. No ascites or lymphadenopathy. Images of pelvis show nondistended urinary bladder. The uterus is surgically absent. No free fluid. No pelvic lymphadenopathy. Bone windows show no acute findings. Multilevel spondylosis. IMPRESSION: 1. No acute abnormality of abdomen or pelvis. 2. Mild bilateral hydronephrosis with no apparent obstructing stone. There is bilateral nephrolithiasis. 3. Status post cholecystectomy with small amount of pneumobilia. Electronically signed by: Chance Cook MD (05/03/2021 8:43 AM) [id number] DICTATED and SIGNED BY: CHANCE COOK MD DATE: 05/03/21 [id number] [facility] [address] [place] [address] IMAGING REPORT Signed PATIENT: MARGARET WALTERS ACCOUNT: [id number] : 1955 LOCATION: ER AGE: 65 SEX: F EXAM STATUS: REG ER ORD. PHYSICIAN: CHARLES MILLER DO REASON: lower back pain PROCEDURE: LUMBAR SPINE 2-3V EXAM: XR LUMBAR SPINE 2-3V 05/03/2021 7:03 AM CLINICAL INDICATION: Low back pain COMPARISON: None TECHNIQUE: 3 views of the lumbar spine FINDINGS: 5 nonrib-bearing lumbar vertebral bodies. The bones are diffusely demineralized. There is leftward curvature of the upper lumbar spine. No definite acute fracture. There is moderate disc space narrowing at L2-L3 and mild disc space and the remaining levels. There are calcifications in the aorta. IMPRESSION: 1. Osteopenia. No definite acute fracture. 2. Moderate degenerative disc disease at L2-L3 and mild at the remaining levels. Electronically signed by: Mini Yeboah MD (05/03/2021 7:53 AM) [id number] DICTATED and SIGNED BY: MINI YEBOAH MD DATE: 05/03/21 [id number] Course & Med Decision Making: Course & Med Decision Making Pertinent Labs and Imaging studies reviewed. (See chart for details) Patient is a 65-year-old female who present to ER due to low back pain, patient was recently injured her pelvic, had sacrum and pubic bone fracture. Patient was discharged from rehab recently, she stopped doing physical therapy at home as well. Patient came into ER complaint of low back pain and pelvic pain. X- ray of the low back shows some arthritis in her low lumbar area, CT scan her abdomen pelvis did not show any acute problem. Patient was given pain medication in the ED, she felt much better. Patient will be discharged home, she already has pain medication at home, she can continue taking her pain medication at prescribed, she will continue her physical therapy as prescribed. Dragon Disclaimer: Dragon Disclaimer: This electronic medical record was generated, in whole or in part, using a voice recognition dictation system. Departure Departure Impression: Primary Impression: Back pain Additional Impression: Hypomagnesemia Disposition: 01 HOME / SELF CARE / HOMELESS Condition: STABLE Referrals: REBECCA DAVIES MD (PCP) Follow up with your family physician next week Patient Instructions: Back Pain, Adult, Hypomagnesemia Additional Instructions: Continue taking your pain medication as needed. Continue your physical therapy as scheduled. CHARLES MILLER DO May 03, 2021 08:56
[2021-05-03 10:09] VITALS: BP 166/82
== END 2021-05-03 10:09 | disposition home or self-care (01) ==
LOC: ER 06:15
DX: M54.5 Low back pain (principal); E83.42 Hypomagnesemia; M51.36 Other intervertebral disc degeneration, lumbar region; Z88.1 Allergy status to other antibiotic agents
CPT/HCPCS: 36415; 72100; 74177; 80053; 81001; 83690; 83735; 85025; 96361; 96365; 96375; 99285; J2270; J2405; J3475; J7030; Q9967

== ENCOUNTER → 2021-05-13 | Outpatient (CLI) | payer MEDICARE ==
[2021-05-03 10:09] VITALS: BP 166/82
--- NOTE | 2021-05-13 17:17 | KCIC ---
INDICATION: Screening for osteopenia/osteoporosis. Reason: OSTEOPOROSIS, POSTMENOPAUSAL / Spl. Instr uctions: / History: COMPARISON: None. TECHNIQUE: Bone densitometry was performed through the lumbar spine and proximal femur. IMPRESSION: Lumbar Spine: BMD: 0.7 T-Score: -3.2 Range: Osteoporotic Proximal Femur: BMD: 0.54 T-Score: -3.3 Range: Osteoporotic World Health Organization Criteria for Bone Density: T-Score: > -1.0: Normal Range < -1.0 to -2.5: Osteopenic Range < -2.5: Osteoporotic Range Electronically signed by: Stew Hill MD (05/13/2021 5:14 PM) [id number]
== END ==
LOC: KCIC DEXA 15:31
PROVIDERS: ATTEND Internal Medicine
DX: M81.0 Age-related osteoporosis without current pathological fracture (principal); N95.9 Unspecified menopausal and perimenopausal disorder
CPT/HCPCS: 77080

== ENCOUNTER → 2021-06-22 | Outpatient (CLI) | payer MEDICARE ==
[~2021-06-22] MED LIST changes: +ACET325T21 PO; +ACYC200C84 PO; +BUPR100T8 PO; +GABA300C18 PO; +IBUP-1027 PO; +IOHEXOL 180 MG/ML 10 ML VIAL. ONE; +LEVO75TA5 PO; +methylPREDNISolone ACETATE 80 MG/ML VIAL. ONE
--- NOTE | 2021-06-22 16:06 | PDOC1 ---
INITIAL PAIN CONSULT DATE OF SERVICE: DOS: DATE: 06/22/21 TIME: 16:00 CHIEF COMPLAINT: Chief Complaint: Low back and left greater than right lower extremity pain HISTORY OF PRESENT ILLNESS: 66-year-old female presents with history of pain in the low back and bilateral lower extremities for many years worse since a fall in March of this year where she had a cracked pelvis and exacerbated the pain in the back significantly patient reports now is rating the bilateral lower extremities posterior gluteus posterior lateral thigh lateral anterior thigh anteromedial thighs bilaterally worse on the left side worse with walking standing changing positions standing for more than 10 or 15 minutes her leg feels numb and she has had to go out on her one such as when she fell in March of this year. Patient reports that it wakes her from sleep least 3-4 times can affect her bowel bladder control which is some increased frequency not any loss of continence patient is using a cane and is using it in her right hand to ambulate. Patient describes the pain is constant sharp stabbing in the back throbbing and shooting in the legs change during the day with activity worse with standing walking also tingling and numbness in the left leg more significantly burning cramping and aching in the back and the leg patient has tried physical therapy also chiropractic treatment and exercise which have made the pain worse doing these patient has tried multiple erjh-[id number] analgesics without significant reduction in pain as well also has had epidural injections in [facility] with good results over a year ago. Patient rates her disability rating 0-10 10 being the worst is a 6 with family home responsibilities and occupation 10 with recreation social activity 7 with sexual behavior self-care and life support activities especially sleeping. Patient did have an MRI scan of the lumbar spine dated June 16, 2021 showing multilevel lumbar degenerative change with most significant at L4-5 with disc base narrowing facet arthropathy thickening of posterior ligaments as ymmetric advanced on the left compared to the right with bilateral neuroforaminal encroachment severe in appearance on the left. Patient reports no complete loss of motor function since her fall but significant fatigability even with walking more than about 10 minutes. PAST MEDICAL HISTORY: PMH: Arthritis, osteoporosis, lupus, cervical cancer, cigarette smoking quit 36 years ago PREVIOUS SURGERIES: Past Surgical Hx: Tonsillectomy, cholecystectomy, appendectomy, hysterectomy CURRENT MEDICATIONS: Current Meds: Active Scripts Medications Dose Route/Sig Max Daily Dose Days Date Category Ibuprofen 400 Mg Tablet 400 Mg PO PRN Q6HRS PRN 06/22/21 Reported Acetaminophen 325 Mg Tablet 1 Tab PO PRN Q4-6HRS PRN 24 06/22/21 Reported Acyclovir 200 Mg Capsule 1 Cap PO 5XDAY 06/22/21 Reported Bupropion Hcl Sr (Bupropion Hcl) 100 Mg Tablet.er 1 Tab PO DAILYWBKFT 06/22/21 Reported Gabapentin (Gabapentin) 300 Mg Capsule 300 Mg PO TID 06/22/21 Reported Levothyroxine Sodium 75 Mcg Tablet 1 Tab PO DAILY 06/22/21 Reported Hydrocodone-Apap 10-325 (Hydrocodone Bit/Acetaminophen) 1 Tab Tablet 1 Tab PO Q6HRS PRN 5 04/21/21 Rx Imodium A-D (Loperamide HCl) 2 Mg Capsule 2 Mg PO PRN PRN 04/17/21 Reported Ventolin Hfa Inhaler (Albuterol Sulfate) 18 Gm Hfa.aer.ad 90 Mcg INH PRN PRN 04/17/21 Reported Proair Hfa (Albuterol Sulfate) 8.5 Gm Hfa.aer.ad 2 Puff IH PRN Q4-6HRS PRN 21 04/17/21 Reported Triamcinolone Acetonide 0.1% Cream (Triamcinolone Acetonide) 15 Gm Cream..g. 1 Cedrick TP PRN 04/17/21 Reported Omeprazole 20 Mg Capsule. 1 Cap PO DAILY 04/17/21 Reported Cymbalta (Duloxetine Hcl) 60 Mg Capsule.dr 1 Cap PO DAILY 04/17/21 Reported Meloxicam 15 Mg Tablet 1 Tab PO DAILY 30 04/17/21 Reported Carbamazepine 100 Mg Cpmp.12hr 200 Mg PO DAILY 04/17/21 Reported Aspirin 81 Mg Tab.chew 1 Tab PO DAILY 04/17/21 Reported ALLERGIES; Allergies: Coded Allergies: amoxicillin (Verified Allergy, Intermediate, rash, 04/16/21) FAMILY HISTORY: Family Hx: No major medical problems or conditions that she lists SOCIAL HISTORY: Social Hx: Patient is nondrug alcohol quit smoking many years ago denies any illegal illicit or recreational drugs is lives with her spouse recently located to [place] from [place] to be near her grandchildren. Patient reports she is currently retired REVIEW OF SYSTEMS: ROS: Positive for those items mentioned in history of present illness, all systems are reviewed, otherwise negative ,and are complete full and well-documented on patient's chart. PHYSICAL EXAM: VS: Blood pressure 131/78 pulse 80 respiration 16 temperature 98.5 F height is 5 foot 2 inches weight is 111 pounds PE: PHYSICAL EXAMINATION: GENERAL: The patient is awake, alert, oriented, appropriate, very pleasant in demeanor. HEENT: Shows normocephalic, atraumatic. Extraocular movements are intact and symmetrical. Oral cavity: Mucous membranes moist and pink. NECK: Shows anterior throat supple without palpable lymphadenopathy noted. Swallow reflex symmetrical. CHEST: Shows normal on inspection. Breath sounds are clear bilaterally, distant no rales rhonchi wheezes auscultated. HEART: Shows S1, S2 clear. No murmurs auscultated. ABDOMEN: Soft, nontender, nondistended. No palpable organomegaly is noted. No rebound or guarding demonstrated. BACK: Shows spine grossly in the midline. Normal-appearing cervical lordotic curvature. There is mildly increased thoracic kyphosis, some flattening of the lumbar lordotic curvature. Lumbar paraspinous muscles show symmetrical on inspection, on palpation shows some moderate tenderness diffusely throughout the upper, middle and lower distribution of the paraspinous muscles bilaterally and also into the lower thoracic paraspinous musculature, firm and tender, but without specific trigger points, without radiation of pain. The patient has good rotational motion of the lumbar spine, both laterally as well as extension and flexion without significant difficulty. No tenderness over the spinous processes, sacrum or sacroiliac regions. EXTREMITIES: Lower extremities show deep tendon reflexes 2+ in the patellar and tendo calcaneus tendons. Motor exam is 5 on a scale of 5 with right dorsiflexio n, extension, quadriceps and hamstring flexion and 4/5 on the left. Peripheral pulses are 1+ posterior tibial. No peripheral edema is noted bilaterally. Lower extremities are warm and dry to touch, equal in color and appearance. Straight leg raise noted to be positive on the right at approximate 35 degrees, decreased with knee flexion right side is negative. Gaenslen's and Jorge's maneuvers are negative bilateral as well. The patient is able to stand, stand on her toes without significant difficulty but is walking with a favoring gait does appear to favor the left lower extremity is using a cane to ambulate in her right hand. SKIN: Shows warm and dry, good turgor. No edema. No sores, rashes or bruising throughout. IMPRESSION: Impression: 66-year-old female with long history of low back pain worse after recent fall with radicular pain greater on the left than the right. MRI scan lumbar spine as noted Lupus History of cervical cancer History cigarette smoking Plan: Options were discussed with the patient including conservative management physical therapies and interventional techniques. Patient elects interventional techniques. We discussed a lumbar epidural steroid injections description as well as anatomical models to describe the procedure. Risks were discussed including but not limited to: Bleeding, infection, possibility of epidural ezra pranay and subsequent neurological compromise, dural puncture, headaches, spinal cord and/or nerve damage, side effects of steroid medication, and poor results regarding pain control. Patient understands and wished to proceed. Patient will return to clinic in approximately 2 weeks for follow-up, was counseled as return appointment, activity, and side effects beware. Procedure is lumbar epidural steroid injection under local anesthetic using sterile prep and drape at the L4-5 level using C-arm fluoroscopic guidance in both AP and lateral views medications injected is 120 mg Depo-Medrol +10mL preservative-free normal saline and 2 mL contrast- condition at discharge is stable patient tolerated procedure well had no complications. MARTIN OWENS MD Jun 22, 2021 16:06
--- NOTE | 2021-06-22 16:07 | PDOC4 ---
Procedure Note: ICD 10 Code: ICD 10 Code: M54.16 M51.36 Procedure Note: Patient was consented for lumbar epidural steroid injection with fluoroscopic guidance. Risks were discussed including but not limited to: Bleeding, infection, possibility of epidural hematoma and subsequent neurological compromise, dural puncture, headaches, spinal cord and/or nerve damage, side effects of steroid medication, and poor results regarding pain control. Patient understands and wished to proceed. Procedure is lumbar epidural steroid injection under local anesthetic using sterile prep and drape at the L4-5 level using C-arm fluoroscopic guidance in both AP and lateral views medications injected is 120 mg Depo-Medrol +10mL preservative-free normal saline and 2 mL contrast- condition at discharge is stable patient tolerated procedure well had no complications. MARTIN OWENS MD Jun 22, 2021 16:07
== END | disposition home or self-care (01) ==
LOC: PNCL 14:24
PROVIDERS: ATTEND Anesthesiology
DX: M51.16 Intervertebral disc disorders with radiculopathy, lumbar region (principal); M79.604 Pain in right leg; M19.90 Unspecified osteoarthritis, unspecified site; M81.0 Age-related osteoporosis without current pathological fracture; F32.9 Major depressive disorder, single episode, unspecified; Z87.891 Personal history of nicotine dependence; Z90.49 Acquired absence of other specified parts of digestive tract; Z90.710 Acquired absence of both cervix and uterus; Z98.890 Other specified postprocedural states; Z79.899 Other long term (current) drug therapy; Z88.1 Allergy status to other antibiotic agents; Z85.41 Personal history of malignant neoplasm of cervix uteri; Z72.89 Other problems related to lifestyle
CPT/HCPCS: 62323; G0463; J1040; Q9965

== ENCOUNTER → 2021-08-17 | Outpatient (CLI) | payer MEDICARE ==
[~2021-08-17] MED LIST changes: -DULO60CA6 PO; +DULO60CA7 PO; +methylPREDNISolone ACETATE 40 MG/ML VIAL. ONE; -methylPREDNISolone ACETATE 80 MG/ML VIAL. ONE
--- NOTE | 2021-08-17 16:06 | PDOC ---
Progress Note - Pain Clinic Date of Service: DOS: DATE: 08/17/21 TIME: 16:03 Diagnosis: Dx: Lumbar radiculopathy lumbar degenerative disc disease History or Present Illness: HPI: 66-year-old female returns for follow-up status post lumbar epidural steroid injection x1. Patient reports about 50% improvement but has significant pain returned over the past few weeks patient was last seen in May now the pain is returned over the past few weeks significantly which is flared up her lupus and her fibromyalgia by her report. Patient reports pain is across the low back into the bilateral lower extremities posterior gluteus posterior thighs lateral thighs anterior thighs at times as well patient reports a 10 on scale 10 is worst an average and 7 its least is a 10 today pain scribes aching sharp dull tight shooting cramping and stabbing burning radiating can be constant severe and unbearable in the back and legs. Patient reports much worse with walking standing changing positions getting up from a seated position as well as trying to get sleep at night is becoming more difficult patient reports it sporadically awakens her from sleep but not every night. Patient reports she has a new MRI scan has been ordered but not been performed yet. Physical Exam: VS: Blood pressure is 126/82 pulse 84 respirations are 16 temperature 98.3 F weight is 111 pounds PE: PHYSICAL EXAMINATION: GENERAL: The patient is awake, alert, oriented, appropriate, very pleasant in demeanor HEENT: Shows normocephalic, atraumatic. Extraocular movements are intact and symmetrical. Oral cavity: Mucous membranes moist and pink. Dentition is intact. NECK: Shows anterior throat supple without palpable lymphadenopathy noted. Swallow reflex symmetrical. CHEST: Shows normal on inspection. Breath sounds are clear bilaterally, no rales or rhonchi. HEART: Shows S1, S2 clear. No murmurs auscultated. ABDOMEN: Soft, nontender, nondistended. No palpable organomegaly is noted. BACK: Shows spine grossly in the midline. Normal-appearing cervical lordotic curvature. There is slightly increased thoracic kyphosis, some minor flattening of the lumbar lordotic curvature. Lumbar paraspinous muscles show symmetrical on inspection, on palpation shows some moderate tenderness diffusely throughout the upper, middle and lower distribution of the paraspinous muscles, but without specific trigger points, without radiation of pain. The patient has good rotational motion of the lumbar spine, both laterally as well as extension and flexion without significant difficulty. EXTREMITIES: Lower extremities show deep tendon reflexes 2 in the patellar and tendo calcaneus tendons. Motor exam is 5 on a scale of 5 with right dorsiflexion, extension, quadriceps and hamstring flexion and 4/5 on the left. Peripheral pulses are 1+ posterior tibial. No peripheral edema is noted bilaterally. Lower extremities are warm and dry to touch, equal in color and appearance. SKIN: Shows warm and dry, good turgor. No edema. No sores, rashes or bruising throughout. Procedure: Procedure: Options were discussed with patient. Patient chart was reviewed as her current medication regimen updated current review of systems updated today as well. We will proceed with a lumbar epidural steroid injection today with fluoroscopic guidance. Risks were discussed including but not limited to: Bleeding, infe ction, possibility of epidural hematoma and subsequent neurological compromise, dural puncture, headaches, spinal cord and/or nerve damage, side effects of steroid medication, and poor results regarding pain control. Patient understands and wished to proceed. Patient will return to the clinic in approximate 2 weeks for follow-up, was counseled return appointment, activity level, and side effect to be aware of. Medication Injected: Med Injected: Procedure is lumbar epidural steroid injection under local anesthetic using sterile prep and drape at the L4-5 level using C-arm fluoroscopic guidance in brice th AP and lateral views medications injected is 120 mg Depo-Medrol +10mL preservative-free normal saline and 2 mL contrast- condition at discharge is stable patient tolerated procedure well had no complications. Condition at Discharge: Condition at Discharge: Condition at discharge is stable, patient tolerated the procedure well and had no complications. MARTIN OWENS MD Aug 17, 2021 16:06
--- NOTE | 2021-08-17 16:07 | PDOC4 ---
Procedure Note: ICD 10 Code: ICD 10 Code: M54.16 M51.36 Procedure Note: Patient was consented for lumbar epidural steroid injection with fluoroscopic guidance. Risks were discussed including but not limited to: Bleeding, infection, possibility of epidural hematoma and subsequent neurological compromise, dural puncture, headaches, spinal cord and/or nerve damage, side effects of steroid medication, and poor results regarding pain control. Patient understands and wished to proceed. Procedure is lumbar epidural steroid injection under local anesthetic using sterile prep and drape at the L4-5 level using C-arm fluoroscopic guidance in both AP and lateral views medications injected is 120 mg Depo-Medrol +10mL preservative-free normal saline and 2 mL contrast- condition at discharge is stable patient tolerated procedure well had no complications. MARTIN OWENS MD Aug 17, 2021 16:07
== END | disposition home or self-care (01) ==
LOC: PNCL 14:59
PROVIDERS: ATTEND Anesthesiology
DX: M51.16 Intervertebral disc disorders with radiculopathy, lumbar region (principal); J45.909 Unspecified asthma, uncomplicated; F32.9 Major depressive disorder, single episode, unspecified; Z87.891 Personal history of nicotine dependence; Z79.82 Long term (current) use of aspirin; Z79.899 Other long term (current) drug therapy; Z90.49 Acquired absence of other specified parts of digestive tract; Z90.710 Acquired absence of both cervix and uterus; Z98.890 Other specified postprocedural states; Z88.1 Allergy status to other antibiotic agents; Z72.89 Other problems related to lifestyle
CPT/HCPCS: 62323; J1030; Q9965

== ENCOUNTER → 2021-08-31 | Outpatient (CLI) | payer MEDICARE ==
[~2021-08-31] MED LIST changes: +methylPREDNISolone ACETATE 80 MG/ML VIAL. ONE
--- NOTE | 2021-08-31 15:38 | PDOC ---
Progress Note - Pain Clinic Date of Service: DOS: DATE: 08/31/21 TIME: 15:35 Diagnosis: Dx: Lumbar radiculopathy with lumbar degenerative disc disease History or Present Illness: HPI: 66-year-old female returns for follow-up status post lumbar epidural steroid injection last seen August 17, 2021 patient did very well with about a 75% improvement however she was climbing on a kitchen counter to put some decorations up in her kitchen and slipped and fell landing on her right side causes increased pain in the low back in the right lower extremity patient reports is radiating the posterior gluteus posterior lateral thigh some in the hip as well on the right side now as well as the left side as it was previously more on the left side patient reports since her fall the pain is now new on the right side into the right lower extremity aching and dull sharp and tight in the back shooting the leg burning and cramping can be radiating can be constant severe this happened about 2 weeks ago and the pain is becoming more more noticeable with activity patient reports is better with sitting or laying down but does awaken from sleep at night least once or twice a night patient reports a 10 on scale 10 is worse over the past week 1 on least and 7 at average is a 7 today. Patient reports no bowel bladder incontinence but significant pain since the fall now in the low back and the right side as well as the left side. Physical Exam: VS: Blood pressure is 133/84 pulse 76 respirations are 16 temperature 98.1 F weight is 111 pounds PE: PHYSICAL EXAMINATION: GENERAL: The patient is awake, alert, oriented, appropriate, very pleasant in demeanor HEENT: Shows normocephalic, atraumatic. Extraocular movements are intact and symmetrical. Oral cavity: Mucous membranes moist and pink. NECK: Shows anterior throat supple without palpable lymphadenopathy noted. Swallow reflex symmetrical. CHEST: Shows normal on inspection. Breath sounds are clear bilaterally. HEART: Shows S1, S2 clear. No murmurs auscultated. ABDOMEN: Soft, nontender, nondistended. No palpable organomegaly is noted. BACK: Shows spine grossly in the midline. Normal-appearing cervical lordotic curvature. There is slightly increased thoracic kyphosis, some minor flattening of the lumbar lordotic curvature. Lumbar paraspinous muscles show symmetrical on inspection, on palpation shows some moderate tenderness diffusely throughout the upper, middle and lower distribution of the paraspinous muscles, but without specific trigger points, without radiation of pain. The patient has good rotational motion of the lumbar spine, both laterally as well as extension and flexion without significant difficulty. EXTREMITIES: Lower extremities show deep tendon reflexes 2+ in the patellar and tendo calcaneus tendons. Motor exam is 5 on a scale of 5 with right dorsiflexion, extension, quadriceps and hamstring flexion and 4/5 on the left. Peripheral pulses are 1+ posterior tibial. No peripheral edema is noted bilaterally. Lower extremities are warm and dry. SKIN: Shows warm and dry, good turgor. No edema. No sores, rashes or bruising throughout. Procedure: Procedure: Options were discussed with patient. Patient's old chart was reviewed as her current medication regimen updated current review of systems updated today as well. We will proceed with a lumbar epidural steroid injection today with fluoroscopic guidance. Risks were discussed including but not limited to: Bleeding, infection, possibility of epidural hematoma and subsequent neurological compromise, dural puncture, headaches, spinal cord and/or nerve damage, side effects of steroid medication, and poor results regarding pain control. Patient understands and wished to proceed. Patient will return to clinic in approximate 2 weeks for follow-up, was counseled as return appointment, activity level and side effect to be aware of. Medication Injected: Med Injected: Procedure is lumbar epidural steroid injection under local anesthetic using sterile prep and drape at the L4-5 level using C-arm fluoroscopic guidance in both AP and lateral views medications injected is 120 mg Depo-Medrol +10mL preservative-free normal saline and 2 mL contrast- condition at discharge is stable patient tolerated procedure well had no complications. Condition at Discharge: Condition at Discharge: Condition at discharge stable, pain tolerated the procedure well and had no complications. MARTIN OWENS MD Aug 31, 2021 15:38
--- NOTE | 2021-08-31 15:39 | PDOC4 ---
Procedure Note: ICD 10 Code: ICD 10 Code: M54.16 M51.36 Procedure Note: Patient was consented for lumbar epidural steroid injection fluoroscopic guidance. Risks were discussed including but not limited to: Bleeding, infection, possibility of epidural hematoma and subsequent neurological compromise, dural puncture, headaches, spinal cord and/or nerve damage, side effects of steroid medication, and poor results regarding pain control. Patient understands and wished to proceed. Procedure is lumbar epidural steroid injection under local anesthetic using sterile prep and drape at the L4-5 level using C-arm fluoroscopic guidance in both AP and lateral views medications injected is 120 mg Depo-Medrol +10mL preservative-free normal saline and 2 mL contrast- condition at discharge is stable patient tolerated procedure well had no complications. MARTIN OWENS MD Aug 31, 2021 15:39
== END | disposition home or self-care (01) ==
LOC: PNCL 15:05
PROVIDERS: ATTEND Anesthesiology
DX: M51.16 Intervertebral disc disorders with radiculopathy, lumbar region (principal); J45.909 Unspecified asthma, uncomplicated; F32.9 Major depressive disorder, single episode, unspecified; Z90.49 Acquired absence of other specified parts of digestive tract; Z90.710 Acquired absence of both cervix and uterus; Z98.890 Other specified postprocedural states; Z79.899 Other long term (current) drug therapy; Z87.891 Personal history of nicotine dependence; Z72.89 Other problems related to lifestyle; Z88.1 Allergy status to other antibiotic agents
CPT/HCPCS: 62323; J1030; J1040; Q9965